=== PATIENT | male | born 1985 | race Caucasian/White ===

== ENCOUNTER 2017-05-23 15:56 | Inpatient (IN) | payer OTHER ==
[2017-05-23] MEDS ORDERED: SODIUM CHLORIDE 0.9% 1,000 ML IV STA (17:31)
--- NOTE | 2017-05-23 17:37 | ED ---
Nausea/Vomiting/Diarrhea HPI - General Chief complaint: Nausea/Vomiting/Diarrhea Stated complaint: dark urine/vomiting Time Seen by Provider: 05/23/17 17:26 Source: patient Mode of arrival: ambulatory Limitations: no limitations - History of Present Illness Initial comments: 32-year-old male patient presents to emergency department today for evaluation of upper abdominal pain, nausea, diarrhea, and vomiting for the last 4 days. Patient states also that for the last 4 days he has been feeling generally unwell and fatigued. Patient states he was having a few loose stools per day, he states last night he had multiple episodes. Patient states that the symptoms come and go. Patient denies any fever, chills, back pain, headache, dizziness, weakness, chest pain, or shortness of breath. He denies any hematuria, dysuria, urinary urgency, or urinary frequency. He denies any dark, bloody, or black stools. Patient does admit to IV drug use, states drug of choice is heroin. Patient has been taking methadone for 4 years as well. Patient was admitted to [facility] facility yesterday. States his symptoms have somewhat improved since being there since they have been giving him Zofran. - Related Data Home Medications Medication Instructions Recorded Confirmed Acetaminophen Tab [Tylenol Tab] 650 mg PO Q4H PRN 05/23/17 05/23/17 Calcium 1000mg Magnesium 500mg 1 tab PO TID PRN 05/23/17 05/23/17 Chlorpheniramine Maleate 4 mg PO Q4H PRN 05/23/17 05/23/17 [Chlor-Trimeton] Ibuprofen [Motrin] 600 mg PO Q6HR PRN 05/23/17 05/23/17 LORazepam [Ativan] 1 - 2 mg PO DIRECTED 05/23/17 05/23/17 Multivitamins, Thera [Multivitamin 1 tab PO DAILY 05/23/17 05/23/17 (formulary)] Ondansetron HCl [Zofran] 8 mg PO Q6H PRN 05/23/17 05/23/17 Ondansetron [Zofran] 4 mg IM Q6H PRN 05/23/17 05/23/17 Thiamine [Vitamin B-1] 100 mg PO DAILY 05/23/17 05/23/17 busPIRone HCl [Buspar] 10 mg PO TID PRN 05/23/17 05/23/17 cloNIDine HCL [Catapres] 0.1 mg PO Q4H PRN 05/23/17 05/23/17 traZODone HCL 50 - 150 mg PO HS 05/23/17 05/23/17 Allergies Allergy/AdvReac Type Severity Reaction Status Date / Time No Known Allergies Allergy Verified 05/23/17 18:24 Review of Systems ROS Statement: Those systems with pertinent positive or pertinent negative responses have been documented in the HPI. ROS Other: All systems not noted in ROS Statement are negative. Past Medical History Past Medical History: No Reported History Additional Past Medical History / Comment(s): back pain, iv drug user History of Any Multi-Drug Resistant Organisms: None Reported Past Surgical History: No Surgical Hx Reported Past Psychological History: No Psychological Hx Reported Smoking Status: Current every day smoker Past Alcohol Use History: None Reported Past Drug Use History: IV Drug Use General Exam Limitations: no limitations General appearance: alert, in no apparent distress Head exam: Present: atraumatic, normocephalic, normal inspection Eye exam: Present: normal appearance, PERRL, EOMI, scleral icterus. Absent: conjunctival injection, periorbital swelling ENT exam: Present: normal exam, mucous membranes moist, other (Foreign body noted to left ear canal, patient states this is a plunger off of a syringe.) Neck exam: Present: normal inspection. Absent: tenderness, meningismus, lymphadenopathy Respiratory exam: Present: normal lung sounds bilaterally. Absent: respiratory distress, wheezes, rales, rhonchi, stridor Cardiovascular Exam: Present: regular rate, normal rhythm, normal heart sounds. Absent: systolic murmur, diastolic murmur, rubs, gallop, clicks GI/Abdominal exam: Present: soft, tenderness (Midepigastric tenderness), normal bowel sounds. Absent: distended, guarding, rebound, rigid Back exam: Present: normal inspection Course Vital Signs 05/23/17 05/23/17 05/23/17 16:17 19:03 20:59 Temperature 97.6 F 98.5 F 98.3 F Pulse Rate 66 63 59 L Respiratory 16 20 20 Rate Blood Pressure 104/68 104/59 111/71 O2 Sat by Pulse 95 100 96 Oximetry Medical Decision Making - Medical Decision Making 32-year-old male patient presented with a 4 day history of upper abdominal pain , nausea, and vomiting. Patient has known history of IV drug abuse as well as hepatitis C. Patient physical exam did reveal scleral icterus and upper abdominal tenderness. Lab work was reviewed and did show an elevated AST, AST, and total bilirubin. Ultrasound of the abdomen was performed and did show some gallbladder wall thickening but no focal liver abnormalities. Did discuss case with Dr. Park who spoke to Dr. Monroe with surgery who states that an urgent surgical evaluation is unnecessary at this time. Discussed case with to Mykel Delgado [facility] who agrees to admit patient for further evaluation. Also spoke to Dr. Renae who wanted to add an acetaminophen level as well as an acute hepatitis profile. - Lab Data Result diagrams: 05/23/17 17:55 05/23/17 17:55 Lab Results 05/23/17 05/23/17 05/23/17 Range/Units 17:55 17:55 17:55 WBC 5.4 (3.8-10.6) k/uL RBC 5.21 (4.30-5.90) m/uL Hgb 15.7 (13.0-17.5) gm/dL Hct 45.1 (39.0-53.0) % MCV 86.5 (80.0-100.0) fL MCH 30.0 (25.0-35.0) pg MCHC 34.7 (31.0-37.0) g/dL RDW 13.8 (11.5-15.5) % Plt Count 139 L (150-450) k/uL Neutrophils % (Manual) 33.0 % Band Neutrophils % 3.0 % Lymphocytes % (Manual) 56.0 % Monocytes % (Manual) 7.0 % Eosinophils % (Manual) 1.0 % Neutrophils # (Manual) 1.9 (1.3-7.7) k/uL Lymphocytes # (Manual) 3.0 (1.0-4.8) k/uL Monocytes # (Manual) 0.4 (0-1.0) k/uL Eosinophils # (Manual) 0.1 (0-0.7) k/uL Nucleated RBCs 0 (0-0) /100 WBC Manual Slide Review Performed RBC Morphology Normal PT 13.9 H (9.0-12.0) sec INR 1.4 H (<1.2) APTT 29.6 (22.0-30.0) sec Sodium 138 (137-145) mmol/L Potassium 4.0 (3.5-5.1) mmol/L Chloride 102 (98-107) mmol/L Carbon Dioxide 29 (22-30) mmol/L Anion Gap 7 mmol/L BUN 11 (9-20) mg/dL Creatinine 0.78 (0.66-1.25) mg/dL Est GFR (MDRD) Af Amer >60 (>60 ml/min/1.73 sqM) Est GFR (MDRD) Non-Af >60 (>60 ml/min/1.73 sqM) Glucose 105 H (74-99) mg/dL Calcium 8.6 (8.4-10.2) mg/dL Total Bilirubin 6.0 H (0.2-1.3) mg/dL Conjugated Bilirubin 3.2 H (0.0-0.3) mg/dL Unconjugated Bilirubin 0.8 (0.0-1.1) mg/dL Delta Bilirubin 2.0 H (0.0-0.2) mg/dL AST 3637 H (17-59) U/L ALT 4275 H (21-72) U/L Alkaline Phosphatase 176 H (38-126) U/L Total Protein 7.2 (6.3-8.2) g/dL Albumin 3.4 L (3.5-5.0) g/dL Amylase 40 (30-110) U/L Lipase 46 (23-300) U/L Urine Color Urine Appearance (Clear) Urine pH (5.0-8.0) Ur Specific [place] (1.001-1.035) Urine Protein (Negative) Urine Glucose (UA) (Negative) Urine Ketones (Negative) Urine Blood (Negative) Urine Nitrite (Negative) Urine Bilirubin (Negative) Urine Urobilinogen (<2.0) mg/dL Ur Leukocyte Esterase (Negative) Urine WBC (0-5) /hpf Urine Mucus (None) /hpf 05/23/17 Range/Units 18:31 WBC (3.8-10.6) k/uL RBC (4.30-5.90) m/uL Hgb (13.0-17.5) gm/dL Hct (39.0-53.0) % MCV (80.0-100.0) fL MCH (25.0-35.0) pg MCHC (31.0-37.0) g/dL RDW (11.5-15.5) % Plt Count (150-450) k/uL Neutrophils % (Manual) % Band Neutrophils % % Lymphocytes % (Manual) % Monocytes % (Manual) % Eosinophils % (Manual) % Neutrophils # (Manual) (1.3-7.7) k/uL Lymphocytes # (Manual) (1.0-4.8) k/uL Monocytes # (Manual) (0-1.0) k/uL Eosinophils # (Manual) (0-0.7) k/uL Nucleated RBCs (0-0) /100 WBC Manual Slide Review RBC Morphology PT (9.0-12.0) sec INR (<1.2) APTT (22.0-30.0) sec Sodium (137-145) mmol/L Potassium (3.5-5.1) mmol/L Chloride (98-107) mmol/L Carbon Dioxide (22-30) mmol/L Anion Gap mmol/L BUN (9-20) mg/dL Creatinine (0.66-1.25) mg/dL Est GFR (MDRD) Af Amer (>60 ml/min/1.73 sqM) Est GFR (MDRD) Non-Af (>60 ml/min/1.73 sqM) Glucose (74-99) mg/dL Calcium (8.4-10.2) mg/dL Total Bilirubin (0.2-1.3) mg/dL Conjugated Bilirubin (0.0-0.3) mg/dL Unconjugated Bilirubin (0.0-1.1) mg/dL Delta Bilirubin (0.0-0.2) mg/dL AST (17-59) U/L ALT (21-72) U/L Alkaline Phosphatase (38-126) U/L Total Protein (6.3-8.2) g/dL Albumin (3.5-5.0) g/dL Amylase (30-110) U/L Lipase (23-300) U/L Urine Color Dark Brown Urine Appearance Clear (Clear) Urine pH 6.0 (5.0-8.0) Ur Specific [place] 1.021 (1.001-1.035) Urine Protein 1+ H (Negative) Urine Glucose (UA) Negative (Negative) Urine Ketones Negative (Negative) Urine Blood Negative (Negative) Urine Nitrite Negative (Negative) Urine Bilirubin 3+ H (Negative) Urine Urobilinogen 4.0 (<2.0) mg/dL Ur Leukocyte Esterase Negative (Negative) Urine WBC 3 (0-5) /hpf Urine Mucus Rare H (None) /hpf - Radiology Data Radiology results: report reviewed, image reviewed Two-view x-ray of the abdomen reveals normal bowel gas pattern. No sign of intestinal obstruction or pneumoperitoneum. Fecal pattern is normal. There are no pathologic calcifications. Lung bases are clear. Impression by Dr. Barboza reveals nonacute abdomen. Disposition Clinical Impression: Acute hepatic failure, Nausea & vomiting Disposition: ADMITTED IP TO THIS [facility] Condition: Fair Referrals: None,Stated [Primary Care Provider] - 1-2 days Decision to Admit Reason: Admit from EC Decision Date: 05/23/17 Decision Time: 20:43
--- NOTE | 2017-05-23 18:15 | XR ---
EXAMINATION TYPE: XR KUB DATE OF EXAM: 05/23/2017 COMPARISON: NONE HISTORY: Nausea and vomiting TECHNIQUE: 2 views FINDINGS: Bowel gas pattern is normal. There is no sign of intestinal obstruction or pneumoperitoneum . Fecal pattern is normal. There are no pathologic calcifications. Lung bases are clear. IMPRESSION: Nonacute abdomen.
[2017-05-23 18:19] LABS: Alkaline Phosphatase 176 U/L (38-126); Amylase 40 U/L (30-110); Anion Gap 7 mmol/L; Blood Urea Nitrogen 11 mg/dL (9-20); Calcium 8.6 mg/dL (8.4-10.2); Carbon Dioxide 29 mmol/L (22-30); Chloride 102 mmol/L (98-107); Glucose 105 mg/dL (74-99); Non-African American GFR(MDRD) >60 (>60 ml/min/1.73 sqM); Sodium 138 mmol/L (137-145); Total Protein 7.2 g/dL (6.3-8.2)
[2017-05-23 18:28] LABS: Aty Lym Flag Moderate; CH 29.2; CHCM 33.9; HCT 45.1 % (39.0-53.0); HDW 2.81; HGB 15.7 gm/dL (13.0-17.5); MCHC 34.7 g/dL (31.0-37.0); MCV 86.5 fL (80.0-100.0); Mean Platelet Volume 8.5; RBC 5.21 m/uL (4.30-5.90); RDW 13.8 % (11.5-15.5); WBC 5.4 k/uL (3.8-10.6); WBC (Perox) 5.31
[2017-05-23 18:52] LABS: Appearance,Urine Clear (Clear); Bilirubin,Urine 3+ (Negative); Glucose,Urine (UA) Negative (Negative); Ketones,Urine Negative (Negative); Leukocyte Esterase,Urine Negative (Negative); Mucus,Urine Rare /hpf; Nitrite,Urine Negative (Negative); Particle Count 4784; Protein,Urine 1+ (Negative); Specific Gravity,Urine 1.021 (1.001-1.035); UA Billing (MACRO vs. MICRO) MICRO; WBC,Urine 3 /hpf (0-5)
[2017-05-23 18:58] LABS: ALT 4275 U/L (21-72); AST 3637 U/L (17-59)
[2017-05-23 19:05] LABS: Add Differential Manual Differential
[2017-05-23 19:08] LABS: Manual Review Performed; Nucleated Red Blood Cells 0 /100 WBC (0-0); RBC Morphology Normal; Total Cells Counted 100
[2017-05-23] MEDS ORDERED: IBUPROFEN 600 MG TAB PO STA (19:21)
[2017-05-23 19:32] LABS: INR 1.4 (<1.2); Partial Thromboplastin Time 29.6 sec (22.0-30.0); Prothrombin Time 13.9 sec (9.0-12.0)
--- NOTE | 2017-05-23 19:59 | US ---
EXAMINATION TYPE: US abdomen limited DATE OF EXAM: 05/23/2017 COMPARISON: NONE CLINICAL HISTORY: Pain. Pt states nausea and dark urine, abnormal LFT's EXAM MEASUREMENTS: Liver Length: 18.7 cm Gallbladder Wall: 0.8 cm CBD: 0.4 cm Right Kidney: 11.3 x 4.3 x 5.0 cm Pancreas: Mostly obscured by bowel gas/ Possible lymph node visible anterior to panc Liver: Enlarged Gallbladder: Lumen clear/ Grossly thickened wall with pericholecystic fluid Evidence for sonographic Jordan's sign: No CBD: wnl Right Kidney: wnl, lower pole gassed out IMPRESSION: Gallbladder wall is somewhat thickened suspicious for cholecystitis. No dilated ducts. No focal liver defect.
[2017-05-23] MEDS: SODIUM CHLORIDE 0.9% 1,000 ML IV SCH (20:06)
[2017-05-23] MEDS ORDERED: NALOXONE 0.4 MG/ML 1 ML VIAL IV PRN (20:30)
[2017-05-23] MEDS ORDERED: cloNIDine HCL 0.1 MG TAB PO PRN (20:34)
[2017-05-23] MEDS ORDERED: busPIRone HCl 10 MG TAB PO PRN (20:34)
[2017-05-23 21:34] LABS: Acetaminophen <10.0 ug/mL
[2017-05-23 22:06] LABS: Hepatitis B Surface Ag Index 0.09
[2017-05-23 22:12] LABS: Hepatitis B Core IgM Index 0.07
[2017-05-23 22:24] LABS: Hepatitis C Virus IgG Ab Reactive (Negative)
[2017-05-23 23:57] VITALS: BMI 22.2
[2017-05-24] MEDS: traZODone HCL 50 MG TAB PO SCH ×2 (00:34→20:44)
[2017-05-24 07:07] LABS: Aty Lym Flag Moderate; CH 29.4; CHCM 33.1; HCT 46.3 % (39.0-53.0); HGB 15.1 gm/dL (13.0-17.5); MCH 29.1 pg (25.0-35.0); MCHC 32.6 g/dL (31.0-37.0); MCV 89.3 fL (80.0-100.0); Mean Platelet Volume 8.1; RBC 5.18 m/uL (4.30-5.90); RDW 14.1 % (11.5-15.5); WBC 4.8 k/uL (3.8-10.6); WBC (Perox) 4.75
[2017-05-24 07:24] LABS: Alkaline Phosphatase 167 U/L (38-126); Anion Gap 6 mmol/L; Blood Urea Nitrogen 6 mg/dL (9-20); Calcium 8.1 mg/dL (8.4-10.2); Carbon Dioxide 26 mmol/L (22-30); Chloride 110 mmol/L (98-107); Glucose 83 mg/dL (74-99); Non-African American GFR(MDRD) >60 (>60 ml/min/1.73 sqM); Potassium 3.9 mmol/L (3.5-5.1); Sodium 142 mmol/L (137-145); Total Protein 6.3 g/dL (6.3-8.2)
[2017-05-24] MEDS: ONDANSETRON 4 MG/2 ML VIAL IVP PRN ×2 (07:29→20:44)
[2017-05-24 08:25] LABS: ALT 3570 U/L (21-72); AST 2460 U/L (17-59)
[2017-05-24 08:35] LABS: Add Differential Manual Differential
[2017-05-24 08:39] LABS: INR 1.4 (<1.2)
[2017-05-24 08:40] LABS: Manual Review Performed; Nucleated Red Blood Cells 0 /100 WBC (0-0); Total Cells Counted 100
[2017-05-24] MEDS: METHADONE 10 MG TAB PO SCH (08:44)
--- NOTE | 2017-05-24 15:15 | CONS ---
DATE OF SERVICE: 05/24/2017 REQUESTING PHYSICIAN: Dr. Camara. REASON FOR CONSULTATION: Acute hepatitis. HISTORY OF PRESENT ILLNESS: The patient is a 32-year-old white male who came into the emergency room from [facility] where he was there for the last two or three days duration. He has a history of active intravenous drug use until four days ago. He started having some abdominal discomfort with nausea, not feeling well, some emesis and diarrhea for the last four days duration and came into the emergency room and subsequently was noted to have acute elevation of serum transaminases consistent with acute hepatitis. The patient has been using intravenous drugs on and off for the last five years and the last one was about four years ago. He is presently on a methadone program on an outpatient basis. He was diagnosed with chronic hepatitis infection about two years ago. Was not treated because of his ongoing intravenous drug use. He started noticing his urine somewhat dark in the color for the last five days and then vague abdominal discomfort with nausea, vomiting and diarrhea. He is feeling much better this morning. He reports no fever, chills or night sweats. He reports having hepatitis A and B vaccination in the past. PAST MEDICAL HISTORY: Significant for active intravenous drug use, chronic hepatitis C infection. MEDICATIONS AT HOME: Zofran, multivitamin, BuSpar, Catapres, vitamin D1, Trazodone, Tylenol p.r.n., calcium, Motrin, Ativan. ALLERGIES: None. PAST SURGICAL HISTORY: None. SOCIAL HISTORY: Active intravenous drug use. No alcohol use. FAMILY HISTORY: Unremarkable. REVIEW OF SYSTEMS: CARDIOPULMONARY: No chest pain or shortness of breath. GENITOURINARY: No dysuria or hematuria. MUSCULOSKELETAL: Unremarkable. SKIN: Unremarkable. ENDOCRINE: Unremarkable. PSYCHIATRIC; Unremarkable. NEUROLOGIC: Unremarkable. ENT: Vision unremarkable. CONSTITUTION: No recent weight loss. No night sweats. PHYSICAL EXAMINATION: He appears comfortable, no apparent distress. Vital signs are stable. Blood pressure is 113/66, pulse rate 58, temperature 97.9. HEENT: Unremarkable. Pupils are equal. Conjunctivae pink. Sclerae anicteric. Oral cavity, no lesions. NECK: No JVD or lymph node enlargement. CHEST: Clear to auscultation. HEART: Regular rate and rhythm. ABDOMEN: Soft. Liver was palpable 4 cm below the right costal margin, slightly tender to palpation. No splenomegaly. EXTREMITIES: No pedal edema. SKIN: No rashes. NEURO: Alert and oriented x3. No focal deficits. LABS DURING ADMISSION TO THE HOSPITAL: WBC 5.4, hemoglobin 15.7, platelets 139. INR 1.4, today INR is 1.4. AST was 3637, today it is 2460 ALT was 4275, today it is 3570. T-bili is 6. Amylase and lipase are normal. Hepatitis serology showed hepatitis A IgM antibody positive, hepatitis B surface antigen negative, hepatitis. B core IgM antibody negative and hepatitis C antibody is reactive. IMPRESSION: This is a patient who is an active intravenous drug user, presented to the hospital with abdominal discomfort, nausea, vomiting, abdominal pain and yellowish discoloration of ( ) for the last few days duration. Labs show elevated serum transaminases in the range of 4000 consistent with acute hepatitis. Hepatitis serologies showed hepatitis A IgM antibody to be positive consistent with acute hepatitis A infection. The patient does have chronic hepatitis C infection diagnosed two years ago, now with superimposed acute hepatitis A infection. His serum transaminases have improved from yesterday. He did have ultrasound done of the abdomen that was normal other than some thickened gallbladder wall. RECOMMENDATIONS: 1. Start him on a regular diet. 2. Repeat serum transaminases in the morning. 3. If they continue to improve he can be discharged home in the next 1 or 2 days with close outpatient follow up. 4. In regards to chronic hepatitis C infection, I suggested that he follow up in the office as an outpatient basis and once acute hepatitis A infection is resolved, will do further investigations for hepatitis C infection and see if he is a candidate for antiviral therapy on an outpatient basis. The plan was discussed with him, he is agreeable to it. Thank you for this consultation. JAZZY
--- NOTE | 2017-05-24 15:58 | P.HPIM ---
History of Present Illness Patient is a 32-year-old gentleman came in from [address] because of upper abdominal pain nausea diarrhea and vomiting last going on for 4 days nausea diarrhea improved at this point of time abdominal pain improved as well. And patient is found to have highly elevated liver enzymes with AST and ALP bit between 3000 and 4000 and highly elevated alkaline phosphatase. Patient is found to have positive hepatitis a IgM antibody consistent with acute hepatitis A. Patient does have hepatitis C as well from his IV drug use for which patient is on drug rehabitation program. Patient denied any fever, chills, dysuria. Gastroneurology was consulted patient denied any hematemesis hematochezia or dark stools. Patient liver enzymes need to be monitored the chance of fulminant hepatitis is extremely rare with hepatitis A Ashlee although patient does have acute hepatitis A causing these symptoms of nausea vomiting diarrhea and generalized malaise. Liver enzymes need to be monitored later today along with INR which is minimally elevated to 1.4 because of headache acute hepatitis. Patient may have a competent of chronic hepatitis from hepatitis C. Review of Systems REVIEW OF SYSTEMS: CONSTITUTIONAL: No fever, no malaise, no fatigue. HEENT: No recent visual problems or hearing problems. Denied any sore throat. CARDIOVASCULAR: No chest pain, orthopnea, PND, no palpitations, no syncope. PULMONARY: No shortness of breath, no cough, no hemoptysis. GASTROINTESTINAL: As mentioned in HPI NEUROLOGICAL: No headaches, no weakness, no numbness. HEMATOLOGICAL: Denies any bleeding or petechiae. GENITOURINARY: Denies any burning micturition, frequency, or urgency. MUSCULOSKELETAL/RHEUMATOLOGICAL: Denies any joint pain, swelling, or any muscle pain. ENDOCRINE: Denies any polyuria or polydipsia. The rest of the 14-point review of systems is negative. Past Medical History Past Medical History: No Reported History Additional Past Medical History / Comment(s): back pain, iv drug user (cocaine, heroin) on methadone now and at [address] History of Any Multi-Drug Resistant Organisms: None Reported Past Surgical History: No Surgical Hx Reported Past Anesthesia/Blood Transfusion Reactions: No Reported Reaction Past Psychological History: No Psychological Hx Reported Smoking Status: Current every day smoker Past Alcohol Use History: None Reported Past Drug Use History: Cocaine, Heroin, IV Drug Use - Past Family History Mother Family Medical History: No Reported History Medications and Allergies Home Medications Medication Instructions Recorded Confirmed Type Acetaminophen Tab [Tylenol Tab] 650 mg PO Q4H PRN 05/23/17 05/23/17 History Calcium 1000mg Magnesium 500mg 1 tab PO TID PRN 05/23/17 05/23/17 History Chlorpheniramine Maleate 4 mg PO Q4H PRN 05/23/17 05/23/17 History [Chlor-Trimeton] Ibuprofen [Motrin] 600 mg PO Q6HR PRN 05/23/17 05/23/17 History LORazepam [Ativan] 1 - 2 mg PO DIRECTED 05/23/17 05/23/17 History Multivitamins, Thera [Multivitamin 1 tab PO DAILY 05/23/17 05/23/17 History (formulary)] Ondansetron HCl [Zofran] 8 mg PO Q6H PRN 05/23/17 05/23/17 History Ondansetron [Zofran] 4 mg IM Q6H PRN 05/23/17 05/23/17 History Thiamine [Vitamin B-1] 100 mg PO DAILY 05/23/17 05/23/17 History busPIRone HCl [Buspar] 10 mg PO TID PRN 05/23/17 05/23/17 History cloNIDine HCL [Catapres] 0.1 mg PO Q4H PRN 05/23/17 05/23/17 History traZODone HCL 50 - 150 mg PO HS 05/23/17 05/23/17 History Allergies Allergy/AdvReac Type Severity Reaction Status Date / Time No Known Allergies Allergy Verified 05/23/17 18:24 Physical Exam Vitals: Vital Signs Temp Pulse Pulse Resp BP BP Pulse Ox 05/24/17 07:00 97.8 F 53 L 16 110/67 94 L 05/23/17 22:05 97.9 F 58 L 16 113/66 96 05/23/17 20:59 98.3 F 59 L 20 111/71 96 05/23/17 19:03 98.5 F 63 20 104/59 100 05/23/17 16:17 97.6 F 66 16 104/68 95 Intake and Output 05/24/17 05/24/17 05/24/17 06:59 14:59 22:59 Intake Total 800 Balance 800 Intake: IV 800 Sodium Chloride 0.9% 1, 800 000 ml @ 100 mls/hr IV . Q10H [facility] Rx#:[id number] Other: # Voids 1 PHYSICAL EXAMINATION: GENERAL: The patient is alert and oriented x3, not in any acute distress. Well developed, well nourished. HEENT: Pupils are round and equally reacting to light. EOMI. patient does have scleral icterus. No conjunctival pallor. Normocephalic, atraumatic. No pharyngeal erythema. No thyromegaly. CARDIOVASCULAR: S1 and S2 present. No murmurs, rubs, or gallops. PULMONARY: Chest is clear to auscultation, no wheezing or crackles. ABDOMEN: Soft, nontender, nondistended, normoactive bowel sounds. No palpable organomegaly. MUSCULOSKELETAL: No joint swelling or deformity. EXTREMITIES: No cyanosis, clubbing, or pedal edema. NEUROLOGICAL: Gross neurological examination did not reveal any focal deficits. SKIN: No rashes. Results CBC & Chem 7: 05/24/17 06:47 05/24/17 06:47 Labs: Abnormal Lab Results - Last 24 Hours (Table) 05/23/17 05/23/17 05/23/17 Range/Units 17:55 17:55 17:55 Plt Count 139 L (150-450) k/uL PT 13.9 H (9.0-12.0) sec INR 1.4 H (<1.2) Chloride (98-107) mmol/L BUN (9-20) mg/dL Glucose 105 H (74-99) mg/dL Calcium (8.4-10.2) mg/dL Total Bilirubin 6.0 H (0.2-1.3) mg/dL Conjugated Bilirubin 3.2 H (0.0-0.3) mg/dL Delta Bilirubin 2.0 H (0.0-0.2) mg/dL AST 3637 H (17-59) U/L ALT 4275 H (21-72) U/L Alkaline Phosphatase 176 H (38-126) U/L Albumin 3.4 L (3.5-5.0) g/dL Urine Protein (Negative) Urine Bilirubin (Negative) Urine Mucus (None) /hpf 05/23/17 05/24/17 05/24/17 Range/Units 18:31 06:47 06:47 Plt Count 117 L (150-450) k/uL PT (9.0-12.0) sec INR (<1.2) Chloride 110 H (98-107) mmol/L BUN 6 L (9-20) mg/dL Glucose (74-99) mg/dL Calcium 8.1 L (8.4-10.2) mg/dL Total Bilirubin 6.0 H (0.2-1.3) mg/dL Conjugated Bilirubin (0.0-0.3) mg/dL Delta Bilirubin (0.0-0.2) mg/dL AST 2460 H (17-59) U/L ALT 3570 H (21-72) U/L Alkaline Phosphatase 167 H (38-126) U/L Albumin 2.8 L (3.5-5.0) g/dL Urine Protein 1+ H (Negative) Urine Bilirubin 3+ H (Negative) Urine Mucus Rare H (None) /hpf 05/24/17 Range/Units 08:19 Plt Count (150-450) k/uL PT 14.0 H (9.0-12.0) sec INR 1.4 H (<1.2) Chloride (98-107) mmol/L BUN (9-20) mg/dL Glucose (74-99) mg/dL Calcium (8.4-10.2) mg/dL Total Bilirubin (0.2-1.3) mg/dL Conjugated Bilirubin (0.0-0.3) mg/dL Delta Bilirubin (0.0-0.2) mg/dL AST (17-59) U/L ALT (21-72) U/L Alkaline Phosphatase (38-126) U/L Albumin (3.5-5.0) g/dL Urine Protein (Negative) Urine Bilirubin (Negative) Urine Mucus (None) /hpf Thrombosis Risk Factor Assmnt - Choose All That Apply Any of the Below Risk Factors Present?: No Other Risk Factors: No Thrombosis Risk Factor Assessment Level: Very Low Risk Assessment and Plan Plan: #1 nausea vomiting diarrhea: Secondary to acute hepatitis A symptoms are improving at this point of time continue with IV fluids and monitor him. Patient will be started on diet. #2 highly elevated liver enzymes: Secondary to acute hepatitis a along with a competent of chronic hepatitis from hepatitis C. We'll repeat liver enzymes along with INR today and tomorrow morning. #3 chronic hepatitis C: Patient related to follow gastric gastroneurology as an outpatient. #4 history of IV drug use in the past. #5 coagulopathy: Secondary to acute hepatitis. #7 jaundice: Secondary to acute hepatitis.
[2017-05-24] MEDS: SODIUM CHLORIDE 0.9% 1,000 ML IV SCH ×2 (16:45)
[2017-05-24 17:55] LABS: INR 1.4 (<1.2); Prothrombin Time 13.4 sec (9.0-12.0)
[2017-05-24 18:10] LABS: Alkaline Phosphatase 141 U/L (38-126); Anion Gap 7 mmol/L; Blood Urea Nitrogen 6 mg/dL (9-20); Calcium 8.1 mg/dL (8.4-10.2); Carbon Dioxide 26 mmol/L (22-30); Chloride 107 mmol/L (98-107); Glucose 90 mg/dL (74-99); Non-African American GFR(MDRD) >60 (>60 ml/min/1.73 sqM); Potassium 4.3 mmol/L (3.5-5.1); Sodium 140 mmol/L (137-145); Total Bilirubin 5.1 mg/dL (0.2-1.3)
[2017-05-24 18:40] LABS: ALT 2910 U/L (21-72); AST 1587 U/L (17-59)
[2017-05-25] MEDS: SODIUM CHLORIDE 0.9% 1,000 ML IV SCH ×3 (04:37→20:28)
[2017-05-25 07:56] LABS: Aty Lym Flag Slight; CH 29.8; HCT 46.3 % (39.0-53.0); HDW 2.82; HGB 14.7 gm/dL (13.0-17.5); MCH 28.7 pg (25.0-35.0); MCHC 31.7 g/dL (31.0-37.0); MCV 90.8 fL (80.0-100.0); Mean Platelet Volume 9.1; RDW 15.1 % (11.5-15.5); WBC 4.6 k/uL (3.8-10.6); WBC (Perox) 4.34
[2017-05-25 08:11] LABS: INR 1.2 (<1.2); Prothrombin Time 12.2 sec (9.0-12.0)
[2017-05-25] MEDS: ONDANSETRON 4 MG/2 ML VIAL IVP PRN ×3 (08:13→19:26)
[2017-05-25] MEDS: METHADONE 10 MG TAB PO SCH (08:13)
[2017-05-25 08:45] LABS: Add Differential Manual Differential
[2017-05-25 08:47] LABS: Alkaline Phosphatase 161 U/L (38-126); Anion Gap 5 mmol/L; Blood Urea Nitrogen 4 mg/dL (9-20); Calcium 8.2 mg/dL (8.4-10.2); Carbon Dioxide 26 mmol/L (22-30); Chloride 109 mmol/L (98-107); Glucose 87 mg/dL (74-99); Non-African American GFR(MDRD) >60 (>60 ml/min/1.73 sqM); Potassium 4.4 mmol/L (3.5-5.1); Sodium 140 mmol/L (137-145); Total Bilirubin 5.6 mg/dL (0.2-1.3); Total Protein 6.2 g/dL (6.3-8.2)
[2017-05-25 08:48] LABS: Manual Review Performed; Nucleated Red Blood Cells 0 /100 WBC (0-0); Total Cells Counted 100
[2017-05-25 08:57] LABS: AST 1105 U/L (17-59)
[2017-05-25 09:10] LABS: ALT 2433 U/L (21-72)
--- NOTE | 2017-05-25 12:08 | P.DS ---
Providers Date of admission: 05/23/17 20:42 Attending physician: Gregor Camara Consults: 05/23/17 20:30 Consult Physician Stat Consulting Provider: Mis Renae Consult Reason/Comments: Acute Hepatic Failure Do you want consulting provider notified?: Already Contacted Primary care physician: Stated None Hospital Course: Patient is a 32-year-old gentleman came in from [place] because of upper abdominal pain nausea diarrhea and vomiting last going on for 4 days nausea diarrhea improved at this point of time abdominal pain improved as well. And patient is found to have highly elevated liver enzymes with AST and ALP bit between 3000 and 4000 and highly elevated alkaline phosphatase. Patient is found to have positive hepatitis a IgM antibody consistent with acute hepatitis A. Patient does have hepatitis C as well from his IV drug use for which patient is on drug rehabitation program. Patient denied any fever, chills, dysuria. Gastroneurology was consulted patient denied any hematemesis hematochezia or dark stools. Patient liver enzymes need to be monitored the chance of fulminant hepatitis is extremely rare with hepatitis A although patient does have acute hepatitis A causing these symptoms of nausea vomiting diarrhea and generalized malaise. Liver enzymes need to be monitored later today along with INR which is minimally elevated to 1.4 because of headache acute hepatitis. Patient may have a competent of chronic hepatitis from hepatitis C. 05/25/2017 Patient is still complaining of some nausea, if patient is able to tolerate diet and if his nausea improves patient will be discharged today his liver enzymes did improve bilirubin remains the same which is expected to improve down the line. Patient will be discharged on Prilosec for possible gastritis and the Zofran on as-needed basis for nausea vomiting. Patient will follow with as an outpatient. GENERAL: The patient is alert and oriented x3, not in any acute distress. Well developed, well nourished. HEENT: Pupils are round and equally reacting to light. EOMI. patient does have scleral icterus. No conjunctival pallor. Normocephalic, atraumatic. No pharyngeal erythema. No thyromegaly. CARDIOVASCULAR: S1 and S2 present. No murmurs, rubs, or gallops. PULMONARY: Chest is clear to auscultation, no wheezing or crackles. ABDOMEN: Soft, nontender, nondistended, normoactive bowel sounds. No palpable organomegaly. MUSCULOSKELETAL: No joint swelling or deformity. EXTREMITIES: No cyanosis, clubbing, or pedal edema. NEUROLOGICAL: Gross neurological examination did not reveal any focal deficits. SKIN: No rashes. #1 nausea vomiting diarrhea: Secondary to acute hepatitis A improved symptoms and improved liver enzymes patient will be discharged if he is able to tolerate diet today. #2 highly elevated liver enzymes: Secondary to acute hepatitis a along with a competent of chronic hepatitis from hepatitis C. improved liver enzymes #3 chronic hepatitis C: Patient related to follow gastric gastro-enterology as an outpatient. #4 history of IV drug use in the past. #5 coagulopathy: Secondary to acute hepatitis. #6 possible gastritis: For which patient will be discharged on Prilosec #7 jaundice: Secondary to acute hepatitis. Patient Condition at Discharge: Fair Plan - Discharge Summary New Discharge Prescriptions: New Omeprazole [PriLOSEC] 40 mg PO AC-BRKFST #14 capsule. Ondansetron Odt [Zofran Odt] 4 mg PO Q6HR PRN #20 tab PRN Reason: Anxiety Discontinued Ibuprofen [Motrin] 600 mg PO Q6HR PRN PRN Reason: Pain cloNIDine HCL [Catapres] 0.1 mg PO Q4H PRN PRN Reason: Anxiety No Action traZODone HCL 50 - 150 mg PO HS Chlorpheniramine Maleate [Chlor-Trimeton] 4 mg PO Q4H PRN PRN Reason: withdrawl Acetaminophen Tab [Tylenol Tab] 650 mg PO Q4H PRN PRN Reason: Pain Ondansetron [Zofran] 4 mg IM Q6H PRN PRN Reason: Nausea Ondansetron HCl [Zofran] 8 mg PO Q6H PRN PRN Reason: Nausea Calcium 1000mg Magnesium 500mg 1 tab PO TID PRN PRN Reason: muscle cramps busPIRone HCl [Buspar] 10 mg PO TID PRN PRN Reason: Anxiety Thiamine [Vitamin B-1] 100 mg PO DAILY Multivitamins, Thera [Multivitamin (formulary)] 1 tab PO DAILY LORazepam [Ativan] 1 - 2 mg PO DIRECTED Discharge Medication List Acetaminophen Tab [Tylenol Tab] 650 mg PO Q4H PRN 05/23/17 [History] Calcium 1000mg Magnesium 500mg 1 tab PO TID PRN 05/23/17 [History] Chlorpheniramine Maleate [Chlor-Trimeton] 4 mg PO Q4H PRN 05/23/17 [History] LORazepam [Ativan] 1 - 2 mg PO DIRECTED 05/23/17 [History] Multivitamins, Thera [Multivitamin (formulary)] 1 tab PO DAILY 05/23/17 [History ] Ondansetron HCl [Zofran] 8 mg PO Q6H PRN 05/23/17 [History] Ondansetron [Zofran] 4 mg IM Q6H PRN 05/23/17 [History] Thiamine [Vitamin B-1] 100 mg PO DAILY 05/23/17 [History] busPIRone HCl [Buspar] 10 mg PO TID PRN 05/23/17 [History] traZODone HCL 50 - 150 mg PO HS 05/23/17 [History] Omeprazole [PriLOSEC] 40 mg PO MOISES #14 capsule. 05/25/17 [Rx] Ondansetron Odt [Zofran Odt] 4 mg PO Q6HR PRN #20 tab 05/25/17 [Rx] Follow up Appointment(s)/Referral(s): Mis Renae MD [STAFF PHYSICIAN] - 1 Week None,Stated [Primary Care Provider] - 1-2 days Discharge Disposition: HOME SELF-CARE
[2017-05-25] MEDS: MORPHINE SULFATE 4 MG/ML SYRINGE IVP PRN ×4 (15:00→23:25)
[2017-05-25] MEDS: METOCLOPRAMIDE 5 MG/ML 2 ML VIAL IVP PRN ×2 (16:51→23:25)
[2017-05-25] MEDS: traZODone HCL 50 MG TAB PO SCH (23:26)
[2017-05-26] MEDS: MORPHINE SULFATE 4 MG/ML SYRINGE IVP PRN ×2 (06:18→08:25)
[2017-05-26] MEDS: METOCLOPRAMIDE 5 MG/ML 2 ML VIAL IVP PRN (06:19)
--- NOTE | 2017-05-26 07:03 | PN ---
The patient is a 32 -year-old pleasant white male admitted to the hospital with acute hepatitis A infection. He presented with abdominal pain, nausea and vomiting, not feeling well, with yellowish discoloration of urine for the last four to five days duration. He was noted to have elevated serum transaminase in the 4000 range. No history of alcohol use. No history of Tylenol use recently. He is in [facility] undergoing rehab for IV heroin which the last use was five days ago. Subsequently workup did show positive Hepatitis A IgA antibody consistent with acute hepatitis A infection. He feels better. He still complains of abdominal pain with bowel movements. No nausea or vomiting. On physical examination, he appears appears comfortable, no apparent distress. Vital signs are stable. Blood pressure is 95/65. Pulse rate 56. Temperature 98. HEENT: Unremarkable. Conjunctivae pink. Sclerae anicteric. Oral cavity no lesions. Neck no JVD or lymph node enlargement. Chest is clear to auscultation. Heart is regular rate and rhythm. Abdomen is soft. Bowel sounds positive. No organomegaly. Extremities no pedal edema. Skin no rashes. Neurological: Alert and oriented times three. No focal deficits. Labs: From last night, AST 1587, ALT 2910. Labs from today: AST 1105, ALT is still pending. T-bili is down to 5.6. Alk phos is 161. IMPRESSION: 1. Acute hepatitis A infection. Labs from today show gradual improvement in serum transaminases and PT/INR also improved to 1.2. Overall the patient is recovering well from acute hepatitis A infection. 2. History of intravenous drug use and history of chronic hepatitis C infection, diagnosed two years ago. RECOMMENDATIONS: It was discussed with the patient that his serum transaminases are gradually improving and he can be transferred back to [facility] today. He can continue with a regular diet. He can follow-up in the office in a week on an outpatient basis. JAZZY
[2017-05-26] MEDS: METHADONE 10 MG TAB PO SCH (07:18)
[2017-05-26 07:51] VITALS: BP 107/62; PULSE 60; RESP 18; TEMP 97.8
[2017-05-26] MEDS: SODIUM CHLORIDE 0.9% 1,000 ML IV SCH (08:10)
[2017-05-26] MEDS: ONDANSETRON 4 MG/2 ML VIAL IVP PRN (09:44)
--- NOTE | 2017-05-26 10:48 | P.DS ---
Providers Date of admission: 05/23/17 20:42 Attending physician: Gregor Camara Consults: 05/23/17 20:30 Consult Physician Stat Consulting Provider: Mis Renae Consult Reason/Comments: Acute Hepatic Failure Do you want consulting provider notified?: Already Contacted Primary care physician: Stated None Hospital Course: Patient had nausea vomiting is here because of which he was not discharged. Patient had opiate withdrawal symptoms because he wanted his methadone patient' s symptoms improved improved with IV morphine and patient nausea vomiting up little resolved at this point of time and patient is able to take his methadone today. And patient will be discharged back to his [facility] today. For rest of the hospital course please refer to my dictation from yesterday. PHYSICAL EXAMINATION: GENERAL: The patient is alert and oriented x3, not in any acute distress. Well developed, well nourished. HEENT: Pupils are round and equally reacting to light. EOMI. No scleral icterus. No conjunctival pallor. Normocephalic, atraumatic. No pharyngeal erythema. No thyromegaly. CARDIOVASCULAR: S1 and S2 present. No murmurs, rubs, or gallops. PULMONARY: Chest is clear to auscultation, no wheezing or crackles. ABDOMEN: Soft, nontender, nondistended, normoactive bowel sounds. No palpable organomegaly. MUSCULOSKELETAL: No joint swelling or deformity. EXTREMITIES: No cyanosis, clubbing, or pedal edema. NEUROLOGICAL: Gross neurological examination did not reveal any focal deficits. SKIN: No rashes. Patient Condition at Discharge: Fair Plan - Discharge Summary New Discharge Prescriptions: New Omeprazole [PriLOSEC] [address] [facility] [facility]. Ondansetron Odt [Zofran Odt] 4 mg PO Q6HR PRN #20 tab PRN Reason: Anxiety Discontinued Ibuprofen [Motrin] 600 mg PO Q6HR PRN PRN Reason: Pain cloNIDine HCL [Catapres] 0.1 mg PO Q4H PRN PRN Reason: Anxiety No Action traZODone HCL 50 - 150 mg PO HS Chlorpheniramine Maleate [Chlor-Trimeton] 4 mg PO Q4H PRN PRN Reason: withdrawl Acetaminophen Tab [Tylenol Tab] 650 mg PO Q4H PRN PRN Reason: Pain Ondansetron [Zofran] 4 mg IM Q6H PRN PRN Reason: Nausea Ondansetron HCl [Zofran] 8 mg PO Q6H PRN PRN Reason: Nausea Calcium 1000mg Magnesium 500mg 1 tab PO TID PRN PRN Reason: muscle cramps busPIRone HCl [Buspar] 10 mg PO TID PRN PRN Reason: Anxiety Thiamine [Vitamin B-1] 100 mg PO DAILY Multivitamins, Thera [Multivitamin (formulary)] 1 tab PO DAILY LORazepam [Ativan] 1 - 2 mg PO DIRECTED Discharge Medication List Acetaminophen Tab [Tylenol Tab] 650 mg PO Q4H PRN 05/23/17 [History] Calcium 1000mg Magnesium 500mg 1 tab PO TID PRN 05/23/17 [History] Chlorpheniramine Maleate [Chlor-Trimeton] 4 mg PO Q4H PRN 05/23/17 [History] LORazepam [Ativan] 1 - 2 mg PO DIRECTED 05/23/17 [History] Multivitamins, Thera [Multivitamin (formulary)] 1 tab PO DAILY 05/23/17 [History ] Ondansetron HCl [Zofran] 8 mg PO Q6H PRN 05/23/17 [History] Ondansetron [Zofran] 4 mg IM Q6H PRN 05/23/17 [History] Thiamine [Vitamin B-1] 100 mg PO DAILY 05/23/17 [History] busPIRone HCl [Buspar] 10 mg PO TID PRN 05/23/17 [History] traZODone HCL 50 - 150 mg PO HS 05/23/17 [History] Omeprazole [PriLOSEC] 40 mg PO AC-BRKFST #14 capsule. 05/25/17 [Rx] Ondansetron Odt [Zofran Odt] 4 mg PO Q6HR PRN #20 tab 05/25/17 [Rx] Follow up Appointment(s)/Referral(s): Mis Renae MD [STAFF PHYSICIAN] - 06/18/17 3:00 pm (Please call office with insurance information before sttenting this appointment to make sure they take your insurance.) None,Stated [Primary Care Provider] - 1-2 days Patient Instructions/Handouts: Acute Nausea and Vomiting (GEN) Discharge Disposition: HOME SELF-CARE
== END 2017-05-26 11:17 | disposition home or self-care (01) | DRG 442 ==
LOC: EC 15:56 → 5MS5E 20:42
PROVIDERS: ADMIT Hospitalist; ATTEND Hospitalist
PROC: HZ2ZZZZ Detoxification Services for Substance Abuse Treatment (ICD-10-PCS; principal; 2017-05-23)
DX: B15.9 Hepatitis A without hepatic coma (principal); F11.23 Opioid dependence with withdrawal; D68.4 Acquired coagulation factor deficiency; R17 Unspecified jaundice; F17.200 Nicotine dependence, unspecified, uncomplicated; M54.9 Dorsalgia, unspecified; R51 Headache; R53.83 Other fatigue; B18.2 Chronic viral hepatitis C; K29.70 Gastritis, unspecified, without bleeding; R93.3 Abnormal findings on diagnostic imaging of other parts of digestive tract; R74.8 Abnormal levels of other serum enzymes; F19.10 Other psychoactive substance abuse, uncomplicated; Z79.1 Long term (current) use of non-steroidal anti-inflammatories (NSAID); Z79.899 Other long term (current) drug therapy
CPT/HCPCS: 36415; 74000; 76705; 80053; 80074; 81001; 82150; 82248; 83520; 83690; 85025; 85610; 85730; 96360; 96361; 99285

== ENCOUNTER 2020-03-19 11:01 | Emergency (ER) | payer OTHER ==
[2020-03-19 11:05] VITALS: RESP 18; TEMP 98
[2020-03-19] MEDS ORDERED: SODIUM CHLORIDE 0.9% 1,000 ML IV STA (11:34)
[2020-03-19] MEDS ORDERED: PANTOPRAZOLE 40 MG/10 ML VIAL IVP STA (11:34)
[2020-03-19] MEDS ORDERED: LIDOCAINE 1%-EPI 1:100,000 20 ML VIAL SQ STA (11:35)
[2020-03-19] MEDS ORDERED: AMOXIC-POT CLAV 875-125MG 1 EACH TAB PO STA (11:47)
--- NOTE | 2020-03-19 11:53 | ED ---
General Adult HPI - General Chief complaint: Chest Pain Stated complaint: Dental Pain Time Seen by Provider: 03/19/20 11:06 Source: patient Mode of arrival: ambulatory Limitations: no limitations - History of Present Illness Initial comments: Patient is a 35-year-old male presenting to the emergency department multiple chief complaints. Patient reports about one month ago he developed nausea with multiple episodes of vomiting for 5 days. States that he has developed on and off vomiting episodes with no abdominal pain or diarrhea. No night sweats. She'll. States he does smoke marijuana but the nausea vomiting episodes are not related to that. Patient also reports a possible abscess on his back that was present there about 2 weeks ago. Patient also reports dental pain at tooth #[id number]. Patient states he has partial fracture of those teeth and is yet to see a dentist. Patient also reports he has developed pain around his left shoulder blade about 2 weeks ago which now radiates to the left side of the chest. 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 States the pain is mostly located on the left side of her chest without any radiation and is reproducible palpation. States he is a smoker. - Related Data Home Medications Medication Instructions Recorded Confirmed Acetaminophen Tab [Tylenol Tab] 650 mg PO Q4H PRN 05/23/17 05/23/17 Calcium 1000mg Magnesium 500mg 1 tab PO TID PRN 05/23/17 05/23/17 Chlorpheniramine Maleate 4 mg PO Q4H PRN 05/23/17 05/23/17 [Chlor-Trimeton] LORazepam [Ativan] 1 - 2 mg PO DIRECTED 05/23/17 05/23/17 Multivitamins, Thera [Multivitamin 1 tab PO DAILY 05/23/17 05/23/17 (formulary)] Ondansetron HCl [Zofran] 8 mg PO Q6H PRN 05/23/17 05/23/17 Ondansetron [Zofran] 4 mg IM Q6H PRN 05/23/17 05/23/17 Thiamine [Vitamin B-1] 100 mg PO DAILY 05/23/17 05/23/17 busPIRone HCl [Buspar] 10 mg PO TID PRN 05/23/17 05/23/17 traZODone HCL 50 - 150 mg PO HS 05/23/17 05/23/17 Previous Rx's Medication Instructions Recorded Omeprazole [PriLOSEC] 40 mg PO AC-BRKFST #14 capsule. 05/25/17 Ondansetron Odt [Zofran Odt] 4 mg PO Q6HR PRN #20 tab 05/25/17 Amoxicillin/Potassium Clav 1 tab PO Q12HR #20 tab 03/19/20 [Augmentin 875-125 Tablet] Allergies Allergy/AdvReac Type Severity Reaction Status Date / Time No Known Allergies Allergy Verified 03/19/20 11:05 Review of Systems ROS Statement: Those systems with pertinent positive or pertinent negative responses have been documented in the HPI. ROS Other: All systems not noted in ROS Statement are negative. Past Medical History Past Medical History: No Reported History Additional Past Medical History / Comment(s): back pain, iv drug user (cocaine, heroin) - clean 1 yr, on methadone, hep c History of Any Multi-Drug Resistant Organisms: None Reported Past Surgical History: No Surgical Hx Reported Past Anesthesia/Blood Transfusion Reactions: No Reported Reaction Past Psychological History: No Psychological Hx Reported Smoking Status: Current every day smoker Past Alcohol Use History: None Reported Past Drug Use History: Cocaine, Heroin, IV Drug Use, Marijuana - Past Family History Mother Family Medical History: No Reported History General Exam Limitations: no limitations General appearance: alert, in no apparent distress Head exam: Present: atraumatic, normocephalic, normal inspection Eye exam: Present: normal appearance, PERRL, EOMI Pupils: Present: normal accommodation ENT exam: Present: normal exam, mucous membranes moist. Absent: normal oropharynx (Poor dentition. Partial fracture of teeth #18, 19 and 20. No signs of periapical abscess. Surrounding erythema on the gum line.) Neck exam: Present: normal inspection, full ROM Respiratory exam: Present: normal lung sounds bilaterally, chest wall tenderness (Pectoral tenderness on the left side with palpation. Pain exacerbated with adduction with left upper shoulder.). Absent: respiratory distress, wheezes Cardiovascular Exam: Present: regular rate, normal rhythm, normal heart sounds GI/Abdominal exam: Present: soft. Absent: distended, tenderness, guarding, rebound Extremities exam: Present: normal inspection, full ROM, normal capillary refill, other (+2 ulnar and radial pulses bilaterally.) Back exam: Present: normal inspection, full ROM, other (Scarring noted on the right mid back region where supposedly the patient had an abscess.). Absent: tenderness (Vital signs of tenderness near the left shoulder scapula.) Neurological exam: Present: alert, oriented X3 Psychiatric exam: Present: normal affect, normal mood Skin exam: Present: warm, dry, intact, normal color Course Vital Signs 03/19/20 11:02 Temperature 98.0 F Pulse Rate 90 Respiratory 18 Rate Blood Pressure 140/74 O2 Sat by Pulse 100 Oximetry EKG Findings - EKG Comments: EKG Findings:: Sinus arrhythmia, no ST or T-wave changes. Ventricular rate 66, [place] 172, QRS 104, QTC 442. Medical Decision Making - Medical Decision Making Patient is a 35-year-old male presenting to the emergency department for multiple chief complaints. Exam patient does have partial fracture of tooth #1819 and 20 along with some gingival irritation. Mental block and a left inferior alveolar block was used with lidocaine with epinephrine. Patient tolerated the procedure well. Patient started on Augmentin in the ED and will be discharged with a 10 day course of Augmentin. The left-sided chest pain patient is experiencing appears to be related to his job and a suspect there is an underlying musculoskeletal etiology. Atypical chest pain. Chest x-ray is unremarkable. EKG shows sinus arrhythmia with no ST or T-wave changes. CBC and CMP are unremarkable. UA is negative for UTI. No signs of dehydration. I suspect the nausea related to his use of marijuana. I advised the patient to establish care with a PCP. I counseled the patient for smoking cessation for greater than 3 minutes. Return parameters thoroughly discussed with patient is understanding and agreeable. Case discussed with physician. - Lab Data Result diagrams: 03/19/20 11:47 03/19/20 11:47 Lab Results 03/19/20 03/19/20 03/19/20 Range/Units 11:47 11:47 11:47 WBC 11.2 H (3.8-10.6) k/uL RBC 5.03 (4.30-5.90) m/uL Hgb 14.8 (13.0-17.5) gm/dL Hct 46.6 (39.0-53.0) % MCV 92.7 (80.0-100.0) fL MCH 29.5 (25.0-35.0) pg MCHC 31.8 (31.0-37.0) g/dL RDW 13.5 (11.5-15.5) % Plt Count 275 (150-450) k/uL Neutrophils % 55 % Lymphocytes % 33 % Monocytes % 6 % Eosinophils % 2 % Basophils % 1 % Neutrophils # 6.2 (1.3-7.7) k/uL Lymphocytes # 3.6 (1.0-4.8) k/uL Monocytes # 0.7 (0-1.0) k/uL Eosinophils # 0.2 (0-0.7) k/uL Basophils # 0.1 (0-0.2) k/uL Sodium 139 (137-145) mmol/L Potassium 4.0 (3.5-5.1) mmol/L Chloride 105 (98-107) mmol/L Carbon Dioxide 24 (22-30) mmol/L Anion Gap 10 mmol/L BUN 13 (9-20) mg/dL Creatinine 0.66 (0.66-1.25) mg/dL Est GFR (CKD-EPI)AfAm >90 (>60 ml/min/1.73 sqM) Est GFR (CKD-EPI)NonAf >90 (>60 ml/min/1.73 sqM) Glucose 105 H (74-99) mg/dL Calcium 9.2 (8.4-10.2) mg/dL Total Bilirubin 0.5 (0.2-1.3) mg/dL AST 43 (17-59) U/L ALT 107 H (4-49) U/L Alkaline Phosphatase 56 (38-126) U/L Total Protein 7.9 (6.3-8.2) g/dL Albumin 4.3 (3.5-5.0) g/dL Lipase 24 (23-300) U/L Urine Color Yellow Urine Appearance Clear (Clear) Urine pH 5.5 (5.0-8.0) Ur Specific [place] 1.021 (1.001-1.035) Urine Protein Negative (Negative) Urine Glucose (UA) Negative (Negative) Urine Ketones Negative (Negative) Urine Blood Negative (Negative) Urine Nitrite Negative (Negative) Urine Bilirubin Negative (Negative) Urine Urobilinogen <2.0 (<2.0) mg/dL Ur Leukocyte Esterase Negative (Negative) Disposition Clinical Impression: Pain, dental, Fractured tooth, Atypical chest pain Disposition: HOME SELF-CARE Condition: Stable Instructions (If sedation given, give patient instructions): Chest Pain (ED) Additional Instructions: Take prescribed medication as directed. Avoid eating acidic foods, drinking pop, coffee or energy drinks. Obtained a primary care physician. Return to emergency department if symptoms worsen. Prescriptions: Amoxicillin/Potassium Clav [Augmentin 875-125 Tablet] 1 tab PO Q12HR #20 tab Is patient prescribed a controlled substance at d/c from ED?: No Referrals: None,Stated [Primary Care Provider] - 1-2 days Andrae Pressley [STAFF PHYSICIAN] - 1-2 days Time of Disposition: 12:32
[2020-03-19 11:59] LABS: Appearance,Urine Clear (Clear); Bilirubin,Urine Negative (Negative); Blood,Urine Negative (Negative); Color,Urine Yellow; Glucose,Urine (UA) Negative (Negative); Ketones,Urine Negative (Negative); Leukocyte Esterase,Urine Negative (Negative); Nitrite,Urine Negative (Negative); PH, Urine 5.5 (5.0-8.0); Protein,Urine Negative (Negative); Specific Gravity,Urine 1.021 (1.001-1.035); Urobilinogen,Urine <2.0 mg/dL (<2.0)
[2020-03-19 12:03] LABS: Basophils # (A) 0.1 k/uL (0-0.2); Basophils % (A) 1 %; Eosinophils # (A) 0.2 k/uL (0-0.7); Eosinophils % (A) 2 %; HCT 46.6 % (39.0-53.0); HGB 14.8 gm/dL (13.0-17.5); Lymphocytes # (A) 3.6 k/uL (1.0-4.8); Lymphocytes % (A) 33 %; MCH 29.5 pg (25.0-35.0); MCHC 31.8 g/dL (31.0-37.0); MCV 92.7 fL (80.0-100.0); Mean Platelet Volume 7.8; Monocytes # (A) 0.7 k/uL (0-1.0); Monocytes % (A) 6 %; Neutrophils # (A) 6.2 k/uL (1.3-7.7); Neutrophils % (A) 55 %; Platelet Count 275 k/uL (150-450); RBC 5.03 m/uL (4.30-5.90); RDW 13.5 % (11.5-15.5); WBC 11.2 k/uL (3.8-10.6)
[2020-03-19 12:08] LABS: ALT 107 U/L (4-49); AST 43 U/L (17-59); African American GFR (CKD) >90 (>60 ml/min/1.73 sqM); Albumin 4.3 g/dL (3.5-5.0); Alkaline Phosphatase 56 U/L (38-126); Anion Gap 10 mmol/L; Blood Urea Nitrogen 13 mg/dL (9-20); Calcium 9.2 mg/dL (8.4-10.2); Carbon Dioxide 24 mmol/L (22-30); Chloride 105 mmol/L (98-107); Glucose 105 mg/dL (74-99); Non-African American GFR(CKD) >90 (>60 ml/min/1.73 sqM); Sodium 139 mmol/L (137-145); Total Bilirubin 0.5 mg/dL (0.2-1.3); Total Protein 7.9 g/dL (6.3-8.2)
--- NOTE | 2020-03-19 12:12 | XR ---
EXAMINATION TYPE: XR chest 2V DATE OF EXAM: 03/19/2020 COMPARISON: NONE HISTORY: Abdominal and chest pain TECHNIQUE: Frontal and lateral views of the chest are obtained. FINDINGS: There is no focal air space opacity, pleural effusion, or pneumothorax seen. The cardiac silhouette size is within normal limits. The osseous structures are intact. IMPRESSION: No acute cardiopulmonary process.
[2020-03-19] MEDS ORDERED: ACET/COD 300 MG/30 MG STARTER PACK 6 TAB BTL PO STA (12:36)
[2020-03-19 12:48] VITALS: BP 126/90; PULSE 56
== END 2020-03-19 12:42 | disposition home or self-care (01) ==
LOC: EC 11:01
DX: S02.5XXA Fracture of tooth (traumatic), initial encounter for closed fracture (principal); K08.89 Other specified disorders of teeth and supporting structures; R07.89 Other chest pain; F17.200 Nicotine dependence, unspecified, uncomplicated; Z71.6 Tobacco abuse counseling; Z79.899 Other long term (current) drug therapy; X58.XXXA Exposure to other specified factors, initial encounter
CPT/HCPCS: 36415; 93005; 80053; 83690; 85025; 81003; 71046; 99285; 64400; 99406; 96374; 96361; C9113

== ENCOUNTER 2023-06-27 15:05 | Inpatient (IN) | payer OTHER ==
--- NOTE | 2023-06-27 16:43 | XR ---
EXAMINATION TYPE: XR hand complete 3 views LT DATE OF EXAM: 06/27/2023 Comparison: 06/07/2011 Clinical History: 38-year-old male increased left hand pain and swelling after punching a wall, [place] a Findings: Mild degenerative change first MCP joint. Marked dorsal soft tissue swelling. Bony irregularity along the radial aspect of the first metacarpal head suggesting old arterial injury. No acute fracture, grant bluxation, dislocation seen. Impression: Marked dorsal soft tissue swelling. No acute osseous abnormality seen.
[2023-06-27 16:54] LABS: Basophils % (A) 0 %; Eosinophils # (A) 0.2 k/uL (0-0.7); Eosinophils % (A) 2 %; HCT 42.1 % (39.0-53.0); HGB 13.5 gm/dL (13.0-17.5); Lymphocytes # (A) 3.9 k/uL (1.0-4.8); Lymphocytes % (A) 30 %; MCH 27.9 pg (25.0-35.0); MCV 87.3 fL (80.0-100.0); Mean Platelet Volume 7.8; Monocytes # (A) 0.8 k/uL (0-1.0); Monocytes % (A) 6 %; Neutrophils # (A) 7.7 k/uL (1.3-7.7); Neutrophils % (A) 60 %; Platelet Count 313 k/uL (150-450); RBC 4.83 m/uL (4.30-5.90); RDW 13.9 % (11.5-15.5); WBC 12.9 k/uL (3.8-10.6)
--- NOTE | 2023-06-27 17:39 | ED ---
General Adult HPI - General Chief complaint: Extremity Injury, Upper Stated complaint: L hand injury Time Seen by Provider: 06/27/23 15:45 Source: patient, RN notes reviewed, old records reviewed Mode of arrival: ambulatory Limitations: no limitations - History of Present Illness Initial comments: This is a 38-year-old male who presents emergency Department from [facility]. Patient states he was injecting in his hand between his knuckles on his left hand and now it's swollen and tender and he believes he has an infection. Patient also states he did punch a wall recently but he doesn't think that necessarily associated with it. Patient denies any wrist pain. Patient denies any other issues at this time. Patient denies any fever chills. Patient states the swelling and redness and pain are definitely getting worse - Related Data Home Medications Medication Instructions Recorded Confirmed Acetaminophen Tab [Tylenol Tab] 650 mg PO Q4H PRN 05/23/17 05/23/17 Calcium 1000mg Magnesium 500mg 1 tab PO TID PRN 05/23/17 05/23/17 Chlorpheniramine Maleate 4 mg PO Q4H PRN 05/23/17 05/23/17 [Chlor-Trimeton] LORazepam [Ativan] 1 - 2 mg PO DIRECTED 05/23/17 05/23/17 Multivitamins, Thera [Multivitamin 1 tab PO DAILY 05/23/17 05/23/17 (formulary)] Ondansetron [Zofran] 4 mg IM Q6H PRN 05/23/17 05/23/17 Thiamine [Vitamin B-1] 100 mg PO DAILY 05/23/17 05/23/17 busPIRone HCl [Buspar] 10 mg PO TID PRN 05/23/17 05/23/17 ondansetron HCL [Zofran] 8 mg PO Q6H PRN 05/23/17 05/23/17 traZODone HCL 50 - 150 mg PO HS 05/23/17 05/23/17 Previous Rx's Medication Instructions Recorded Omeprazole [PriLOSEC] 40 mg PO ELIANE-BRKFST #14 capsule. 05/25/17 Ondansetron Odt [Zofran Odt] 4 mg PO Q6HR PRN #20 tab 05/25/17 Amoxicillin/Potassium Clav 1 tab PO Q12HR #20 tab 03/19/20 [Augmentin 875-125 Tablet] Allergies Allergy/AdvReac Type Severity Reaction Status Date / Time No Known Allergies Allergy Verified 06/27/23 15:39 Review of Systems ROS Statement: Those systems with pertinent positive or pertinent negative responses have been documented in the HPI. ROS Other: All systems not noted in ROS Statement are negative. 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 Patient is in mild distress. EYES Patient's pupils are equal and round. Extraocular motion is intact SKIN Unremarkable NEURO The patient is alert and oriented 3 PYSCH Patient has normal interpersonal interactions. MUSCULOSKELETAL Left hand at the fourth MCP is swollen and tender fluctuant and warm Limitations: no limitations Course Vital Signs 06/27/23 06/27/23 06/27/23 15:37 16:25 17:53 Temperature 98.0 F 97.7 F 97.9 F Pulse Rate 70 65 76 Respiratory 20 16 18 Rate Blood Pressure 117/71 125/74 121/79 O2 Sat by Pulse 99 100 100 Oximetry 06/27/23 18:42 Temperature 97.7 F Pulse Rate 70 Respiratory 16 Rate Blood Pressure 125/83 O2 Sat by Pulse 100 Oximetry Medical Decision Making - Medical Decision Making Was pt. sent in by a medical professional or institution (, [place], [facility], urgent care, hospital, or snf...) When possible be specific @ -[facility] sent the patient in Did you speak to anyone other than the patient for history (EMS, parent, family, police, friend...)? What history was obtained from this source @ -No Did you review nursing and triage notes (agree or disagree)? Why? @ -I reviewed and agree with nursing and triage notes Were old charts reviewed (outside hosp., previous admission, EMS record, old EKG, old radiological studies, urgent care reports/EKG's, snf records)? Report findings @ -No old charts were reviewed Differential Diagnosis (chest pain, altered mental status, abdominal pain women, abdominal pain men, vaginal bleeding, weakness, fever, dyspnea, syncope, heada noah, dizziness, GI bleed, back pain, seizure, CVA, palpatations, mental health, musculoskeletal)? @ -Differential Fever: Pneumonia, viral URI, endocarditis, myocarditis, pericarditis, otitis, sinusitis, peritonsillar Abscess, retropharyngeal Abscess, epiglottitis, peritonitis, appendicitis, Mackenzie cystitis, diverticulitis, hepatitis, colitis, UTI, PID, TOA, pyelonephritis, prostatitis, epididymitis, meningitis, encephalitis, pulmonary embolism, CVA, thyroid storm, pancreatitis, adrenal crisis, cavernous sinus thrombosis, this is not meant to be an all-inclusive list. EKG interpreted by me (3pts min.). @ -As above X-rays interpreted by me (1pt min.). @ -X-ray shows no bony abnormality CT interpreted by me (1pt min.). @ -None done U/S interpreted by me (1pt. min.). @ -None done What testing was considered but not performed or refused? (CT, X-rays, U/S, labs)? Why? @ -None What meds were considered but not given or refused? Why? @ -None Did you discuss the management of the patient with other professionals (professionals i.e. , [place], [facility], lab, RT, psych nurse, director of social services, plant clerk, teacher, gift officer, watch case polisher)? Give summary @ -I spoke with some physicians that he agreed to admit the patient Was smoking cessation discussed for >3mins.? @ -No Was critical care preformed (if so, how long)? @ -No Were there social determinants of health that impacted care today? How? (Homele ssness, low income, unemployed, alcoholism, drug addiction, transportation, low edu. Level, literacy, decrease access to med. care, halfway, rehab)? @ -No Was there de-escalation of care discussed even if they declined (Discuss DNR or withdrawal of care, Hospice)? DNR status @ -No What co-morbidities impacted this encounter? (DM, HTN, Smoking, COPD, CAD, Cancer, CVA, ARF, Chemo, Hep., AIDS, mental health diagnosis, sleep apnea, morbid obesity)? @ -None Was patient admitted / discharged? Hospital course, mention meds given and route, prescriptions, significant lab abnormalities, going to OR and other pertinent info. @ -Patient had a probable hand abscess I started the patient on vancomycin spoke with some physicians and they agreed to admit the patient I consulted orthopedics Undiagnosed new problem with uncertain prognosis? @ -No Drug Therapy requiring intensive monitoring for toxicity (Heparin, Nitro, Insulin, Cardizem)? @ -No Were any procedures done? @ -No Diagnosis/symptom? @ -Hand abscess Acute, or Chronic, or Acute on Chronic? @ -Acute Uncomplicated (without systemic symptoms) or Complicated (systemic symptoms)? @ -Complicated Side effects of treatment? @ -No Exacerbation, Progression, or Severe Exacerbation? @ -No Poses a threat to life or bodily function? How? (Chest pain, [place], [place], pneumonia, PE, COPD, DKA, ARF, appy, cholecystitis, CVA, Diverticulitis, Homicidal, Suicidal, threat to staff... and all critical care pts) @ -Yes this could lead to sepsis and end organ dysfunction - Lab Data Result diagrams: 06/27/23 16:10 06/27/23 18:18 Lab Results 06/27/23 06/27/23 06/27/23 Range/Units 16:10 16:10 18:18 WBC 12.9 H (3.8-10.6) k/uL RBC 4.83 (4.30-5.90) m/uL Hgb 13.5 (13.0-17.5) gm/dL Hct 42.1 (39.0-53.0) % MCV 87.3 (80.0-100.0) fL MCH 27.9 (25.0-35.0) pg MCHC 32.0 (31.0-37.0) g/dL RDW 13.9 (11.5-15.5) % Plt Count 313 (150-450) k/uL MPV 7.8 Neutrophils % 60 % Lymphocytes % 30 % Monocytes % 6 % Eosinophils % 2 % Basophils % 0 % Neutrophils # 7.7 (1.3-7.7) k/uL Lymphocytes # 3.9 (1.0-4.8) k/uL Monocytes # 0.8 (0-1.0) k/uL Eosinophils # 0.2 (0-0.7) k/uL Basophils # 0.0 (0-0.2) k/uL Sodium 137 (137-145) mmol/L Potassium 4.1 (3.5-5.1) mmol/L Chloride 103 (98-107) mmol/L Carbon Dioxide 25 (22-30) mmol/L Anion Gap 9 mmol/L BUN 15 (9-20) mg/dL Creatinine 0.77 (0.66-1.25) mg/dL Est GFR (CKD-EPI)AfAm >90 (>60 ml/min/1.73 sqM) Est GFR (CKD-EPI)NonAf >90 (>60 ml/min/1.73 sqM) Glucose 95 (74-99) mg/dL Plasma Lactic Acid Hugh 1.0 (0.7-2.0) mmol/L Calcium 9.8 (8.4-10.2) mg/dL Magnesium 2.0 (1.6-2.3) mg/dL Total Bilirubin 0.4 (0.2-1.3) mg/dL AST 16 L (17-59) U/L ALT 13 (4-49) U/L Alkaline Phosphatase 44 (38-126) U/L Total Protein 7.8 (6.3-8.2) g/dL Albumin 4.0 (3.5-5.0) g/dL Disposition Clinical Impression: Abscess of hand Disposition: ADMITTED IP TO THIS [facility] Referrals: None,Stated [Primary Care Provider] - 1-2 days Time of Disposition: 19:28
[2023-06-27] MEDS ORDERED: VANCOMYCIN IV PER PHARMACY 1 EACH MISC MISCELLANE PRN (18:32)
[2023-06-27] MEDS ORDERED: KETOROLAC 15 MG/ML 1 ML VIAL IVP STA (18:33)
[2023-06-27 18:40] LABS: ALT 13 U/L (4-49); AST 16 U/L (17-59); African American GFR (CKD) >90 (>60 ml/min/1.73 sqM); Alkaline Phosphatase 44 U/L (38-126); Anion Gap 9 mmol/L; Blood Urea Nitrogen 15 mg/dL (9-20); Calcium 9.8 mg/dL (8.4-10.2); Carbon Dioxide 25 mmol/L (22-30); Chloride 103 mmol/L (98-107); Glucose 95 mg/dL (74-99); Non-African American GFR(CKD) >90 (>60 ml/min/1.73 sqM); Potassium 4.1 mmol/L (3.5-5.1); Sodium 137 mmol/L (137-145); Total Bilirubin 0.4 mg/dL (0.2-1.3); Total Protein 7.8 g/dL (6.3-8.2)
[2023-06-27] MEDS ORDERED: VANCOMYCIN 1,250 MG in SODIUM CHLORIDE 0.9% 250 ML IVPB ONE (19:00)
[2023-06-27] MEDS ORDERED: SODIUM CHLORIDE 0.9% 1,000 ML IV ONE (19:28)
[2023-06-27] MEDS ORDERED: PIPERACILLIN-TAZOBACTAM 3.375 GM in SODIUM CHLORIDE 0.9% 100 ML IVPB STA (19:29)
[2023-06-28] MEDS ORDERED: HYDROmorphone 0.5 MG/0.5 ML SYRINGE IVP STA (00:38)
[2023-06-28] MEDS: PIPERACILLIN-TAZOBACTAM 3.375 GM in SODIUM CHLORIDE 0.9% 100 ML IVPB SCH ×4 (01:17→17:11)
[2023-06-28] MEDS: VANCOMYCIN 1,250 MG in SODIUM CHLORIDE 0.9% 250 ML IVPB SCH ×5 (01:46→18:05)
[2023-06-28] MEDS ORDERED: VANCOMYCIN IV PER PHARMACY 1 EACH MISC MISCELLANE PRN (01:55)
--- NOTE | 2023-06-28 02:06 | P.HPIM ---
History of Present Illness H&P Date: 06/27/23 Chief Complaint: Left hand swelling 38-year-old male with hepatitis C and IV drug abuse He is coming in from [place] due to increased swelling redness and pain in his left hand he went [place] on Friday for drug rehab he admits to injecting drugs between his finger knuckles under the skin he uses heroin cocaine and fentanyl he admits to prior history of infections denies any history of endocarditis. He currently denies any fevers or chills denies any chest pain or trouble breathing denies any nausea vomiting abdominal pain denies any GI bleeding changes in urinary or bowel habits He noticed left hand swelling since his last use over the past 4-5 days increase in swelling and pain with erythema now he can't make a fist and pain getting worse for which she decided come in for evaluation. Patient admits to tobacco smoking polysubstance abuse denies any history of alcohol review of systems Pertinent positives as noted in HPI. All other systems were reviewed and are negative on exam Constitutional: No acute distress, conversant, pleasant Eyes: Anicteric sclerae, moist conjunctiva, Pupils equal round reactive to light ENMT: NC/AT Oropharynx clear, no erythema, or exudates Lungs: Clear to auscultation Clear to percussion Normal respiratory effort, no accessory muscle use Cardiovascular: Heart regular in rate and rhythm, No murmurs, gallops, or rubs No peripheral edema Abdominal: Soft Nontender, no guarding, rebound or rigidity Abdomen moving with respiration Normoactive bowel sounds No hepatomegaly, No splenomegaly No palpable mass No abdominal wall hernia noted Skin: Swelling and erythema warmth to the touch and tenderness of the left hand unable to make a fist no drainage no open wounds Extremities: No digital cyanosis No clubbing Pedal pulses intact and symmetrical Radial pulses intact and symmetrical No calf tenderness Psychiatric: Alert and oriented to person, place and time Appropriate affect Neuro Muscles Strength 5/5 in all 4 extremities Sensation to light touch grossly present throughout Cranial nerves II-XII grossly intact Lymphatics: no palpable cervical or supraclavicular lymph nodes Past Medical History Past Medical History: No Reported History Additional Past Medical History / Comment(s): back pain, iv drug user (cocaine, heroin), on methadone, hep c History of Any Multi-Drug Resistant Organisms: None Reported Past Surgical History: No Surgical Hx Reported Past Anesthesia/Blood Transfusion Reactions: No Reported Reaction Past Psychological History: No Psychological Hx Reported Smoking Status: Current every day smoker Past Alcohol Use History: None Reported Past Drug Use History: Cocaine, Heroin, IV Drug Use, Marijuana - Past Family History Mother Family Medical History: No Reported History Medications and Allergies Home Medications Medication Instructions Recorded Confirmed Type Methadone HCl [Methadone Intensol] 79 mg PO DAILY 06/27/23 06/27/23 History Allergies Allergy/AdvReac Type Severity Reaction Status Date / Time No Known Allergies Allergy Verified 06/27/23 20:32 Physical Exam Vitals: Vital Signs Temp Pulse Pulse Resp BP BP Pulse Ox 06/28/23 01:44 98.4 F 63 19 112/64 97 06/27/23 23:56 99.5 F 87 17 133/78 97 06/27/23 23:22 70 18 116/67 98 06/27/23 22:00 70 18 116/67 06/27/23 18:42 97.7 F 70 16 125/83 100 06/27/23 17:53 97.9 F 76 18 121/79 100 06/27/23 16:25 97.7 F 65 16 125/74 100 06/27/23 15:37 98.0 F 70 20 117/71 99 Intake and Output 06/27/23 06/27/23 06/28/23 14:59 22:59 06:59 Other: Weight 71.668 kg 71.668 kg Results CBC & Chem 7: 06/27/23 16:10 06/27/23 18:18 Labs: Abnormal Lab Results - Last 24 Hours (Table) 06/27/23 06/27/23 Range/Units 16:10 18:18 WBC 12.9 H (3.8-10.6) k/uL AST 16 L (17-59) U/L Thrombosis Risk Factor Assmnt - Choose All That Apply Any of the Below Risk Factors Present?: No Other Risk Factors: No Other congenital or acquired thrombophilia - If yes, enter type in comment: No Thrombosis Risk Factor Assessment Level: Very Low Risk Assessment and Plan Assessment: 38-year-old male with polysubstance abuse coming in for left hand swelling and suspected infection secondary to injection of street drugs I discussed the case with the ED doctor I accepted the admission for hand cellulitis and swelling secondary to IV drug abuse with anticipated length of stay more than 2 midnights Polysubstance abuse Left hand cellulitis rule out abscess formation Follow-up cultures X-ray of the hand showed no bony involvement Leukocytosis white count 12.9 Continue with vancomycin dosing by pharmacy Zosyn 3.5 g IV piggyback every 8 hours Tylenol for fever Dilaudid 0.5 mg IV push every 3 hours when necessary Toradol 50 mg IV push every 6 hours when necessary Monitor neurovascular exam of the left hand ID consultation History of hepatitis C Polysubstance abuse patient counseled to quit drug of abuse Renal function unremarkable BUN 13 creatinine 0.7 sodium 137 potassium 4.1 Full code DVT prophylaxis heparin subcu 3 times a day
[2023-06-28] MEDS: SODIUM CHLORIDE 0.9% 1,000 ML IV SCH ×2 (02:51→17:12)
[2023-06-28] MEDS: ACETAMINOPHEN TAB 325 MG TAB PO PRN ×2 (03:17→15:59)
[2023-06-28] MEDS ORDERED: HYDROmorphone 0.5 MG/0.5 ML SYRINGE IM STA (05:53)
[2023-06-28] MEDS ORDERED: HYDROcodone/APAP 7.5-325MG 1 EACH TAB PO ONE (05:53)
[2023-06-28] MEDS: HEPARIN SODIUM,PORCINE 5,000 UNIT/ML 1 ML VIAL SQ SCH ×2 (08:11→15:08)
[2023-06-28] MEDS: METHADONE 10 MG TAB PO SCH (09:21)
--- NOTE | 2023-06-28 13:19 | P.PN ---
Subjective Progress Note Date: 06/28/23 Hospital course: Patient is a 38-year-old male with a past medical history of hepatitis C and IVDA and polysubstance abuse with heroin, cocaine, and fentanyl. He presented to the hospital on 06/27/23 from [facility] [place] secondary to left hand pain and swelling. Patient reports last injecting fentanyl between knuckles on 06/24/23. X-ray left hand was completed showing mild degenerative change and first MCP joint with marked dorsal soft tissue swelling but negative for reports of acute osseous abnormalities. Labs completed and reviewed showing leukocytosis with WBC count of 12.9. Lactate normal findings at 1.0. BMP unremarkable and liver profile also normal findings. Patient started on IV antibiotics of vancomycin and Zosyn and admitted under our services with consultation to infectious disease and orthopedic surgery. Physical exam: Vital signs reviewed and stable. General: Nontoxic, no distress and appears stated age. Derm: Skin warm and dry, normal coloration for ethnicity. Patient with moderate erythema and swelling to left hand extending down into fingers and upwards into wrist. Patient unable to make a fist and with limited movement of fingers and thumb. Head: Atraumatic, normocephalic and symmetric. Eyes: EOMs intact, no lid lag, and anicteric sclera Mouth: no lip lesions, mucus membranes moist Cardiovascular: regular rate and rhythm with normal S1S2, no murmur, positive posterior tibial pulses bilaterally, and cap refill < 2 seconds. Lungs: Respirations even, regular, and unlabored on room air. Lungs CTA bilaterally, no rhonchi, no rales, no wheezing, and no accessory muscle usage. Abdominal: soft, nontender to palpation, no guarding, no appreciable organomegaly Ext: No gross muscle atrophy, no edema, no contractures. Patient unable to make a fist with left hand and with limited movement of fingers and thumb secondary to pain and swelling. Neuro: Speech clear, face symmetrical and CN II-XII grossly intact with no noted focal neuro deficits Psych: Alert and oriented to person, place, time, and situation. Appropriate and pleasant affect. Assessment and Plan of Care: Cellulitis of left hand with concerns of possible abscess secondary to IVDA Polysubstance abuse with heroin, cocaine, and fentanyl IVDA Hepatitis C -Continue IV antibiotics of vancomycin and Zosyn. -Monitor renal function and vancomycin trough closely to monitor for any signs of vancomycin-induced renal toxicity -Infectious disease consulted -Orthopedic surgery consulted for possible I&D and evaluation as patient has li mited movement with left hand. -Continue with symptomatic care and pain management with Toradol 15 mg IVP every 6 hours as needed for mild to moderate pain and Dilaudid 0.5 mg IVP every 3 hours for severe pain. Data reviewed: -Labs completed and reviewed showing leukocytosis with WBC count of 12.9. Lactate normal findings at 1.0. BMP unremarkable and liver profile also normal findings. Imaging reviewed: -X-ray left hand was completed showing mild degenerative change and first MCP joint with marked dorsal soft tissue swelling but negative for reports of acute osseous abnormalities. CODE STATUS: full code DVT prophylaxis: Heparin Discussed with: patient and RN Anticipated discharge date: Clinical course to determine Anticipated discharge place: Home/Return to [facility] Patient was seen independently by Nurse Pracitioner. This document was prepared using [employer] dictation software. Please allow for errors in medical pathologist, while rare they do occur. Josué Vega NP rendered care for this patient independently, reviewed the findings and plan as documented in the note above. I did not physically speak with or examine the patient on this date. Objective - Vital Signs Vital signs: Vital Signs Temp 98 F 06/28/23 08:27 Pulse 60 06/28/23 08:27 Resp 18 06/28/23 08:27 BP 105/64 06/28/23 08:27 Pulse Ox 99 06/28/23 08:27 FiO2 Intake & Output 06/27/23 06/28/23 06/28/23 18:59 06:59 18:59 Weight 71.668 kg 71.668 kg Other: # Voids 2 - Labs CBC & Chem 7: 07/01/23 07:15 07/02/23 10:04 Labs: Abnormal Lab Results - Last 24 Hours (Table) 06/27/23 06/27/23 Range/Units 16:10 18:18 WBC 12.9 H (3.8-10.6) k/uL AST 16 L (17-59) U/L
[2023-06-28] MEDS: HYDROmorphone 0.5 MG/0.5 ML SYRINGE IVP PRN (19:45)
--- NOTE | 2023-06-28 23:33 | P.CONS ---
History of Present Illness - Reason for Consult Consult date: 06/28/23 - History of Present Illness Patient is a 38-year-old male with a past medical history significant for IV drug use presenting to the hospital with increasing pain redness and swelling to the left hand patient did mention injecting to the area on Friday and noticed to having increasing swelling redness the very next day on Friday the area has become more swollen red and painful patient describes the pain to be throbbing with intensity 10 out of 10 without any radiation patient did have some chills but denies high-grade fever with the center the patient was evaluated in the ER on presentation to the hospital the patient was afebrile and no fever has been recorded subsequently patient did have a white count of 12.9 kidney function was normal exams are normal blood culture has been obtained which are currently pending patient did have x-ray of the hand marked dorsal soft tissue swelling no acute bony abnormality patient was started on vancomycin and Zosyn infectious disease was consulted for further management of antibiotic therapy Past Medical History Past Medical History: No Reported History Additional Past Medical History / Comment(s): back pain, iv drug user (cocaine, heroin), on methadone, hep c History of Any Multi-Drug Resistant Organisms: None Reported Past Surgical History: No Surgical Hx Reported Past Anesthesia/Blood Transfusion Reactions: No Reported Reaction Past Psychological History: No Psychological Hx Reported Smoking Status: Current every day smoker Past Alcohol Use History: None Reported Past Drug Use History: Cocaine, Heroin, IV Drug Use, Marijuana - Past Family History Mother Family Medical History: No Reported History Medications and Allergies Home Medications Medication Instructions Recorded Confirmed Type Methadone HCl [Methadone Intensol] 79 mg PO DAILY 06/27/23 06/27/23 History Allergies Allergy/AdvReac Type Severity Reaction Status Date / Time No Known Allergies Allergy Verified 06/27/23 20:32 Physical Exam Vitals: Vital Signs Temp Pulse Pulse Pulse Resp BP BP 06/28/23 13:26 98.5 F 60 18 107/74 06/28/23 08:28 64 06/28/23 08:27 98 F 60 18 105/64 06/28/23 07:28 98.3 F 64 19 119/82 06/28/23 01:44 98.4 F 63 19 112/64 06/27/23 23:56 99.5 F 87 17 133/78 06/27/23 23:22 70 18 116/67 06/27/23 22:00 70 18 116/67 06/27/23 18:42 97.7 F 70 16 125/83 06/27/23 17:53 97.9 F 76 18 121/79 06/27/23 16:25 97.7 F 65 16 125/74 06/27/23 15:37 98.0 F 70 20 117/71 Pulse Ox 06/28/23 13:26 98 06/28/23 08:28 06/28/23 08:27 99 06/28/23 07:28 100 06/28/23 01:44 97 06/27/23 23:56 97 06/27/23 23:22 98 06/27/23 22:00 06/27/23 18:42 100 06/27/23 17:53 100 06/27/23 16:25 100 06/27/23 15:37 99 Intake and Output 06/28/23 06/28/23 06/28/23 06:59 14:59 22:59 Other: # Voids 2 Weight 71.668 kg Results CBC & Chem 7: 06/27/23 16:10 06/27/23 18:18 Labs: Abnormal Lab Results - Last 24 Hours (Table) 06/27/23 06/27/23 Range/Units 16:10 18:18 WBC 12.9 H (3.8-10.6) k/uL AST 16 L (17-59) U/L Assessment and Plan Plan: 1patient was in the hospital with the left hand dorsomedial swelling redness pain secondary to the IV drug use concerning for development of underlying abscess likely from gram-positive skin shiv underlying gram-negative infection less likely but not entirely excluded. 2await orthopedics evaluation for possible I&D and deep culture. 3we will continue patient on vancomycin however discontinue Zosyn to decrease risk of nephrotoxicity and add cefepime for gram-negative coverage. 4check inflammatory markers. We will follow on clinical condition and cultures to further adjust medication if needed Thank you for this consultation we will follow the patient along with you Dictation was produced using [employer] dictation software. please excuse any grammatical, word or spelling errors. Time with Patient: Greater than 30
[2023-06-29] MEDS: HEPARIN SODIUM,PORCINE 5,000 UNIT/ML 1 ML VIAL SQ SCH ×3 (00:11→14:40)
[2023-06-29] MEDS: KETOROLAC 15 MG/ML 1 ML VIAL IVP PRN ×2 (00:19→08:24)
[2023-06-29] MEDS: CEFEPIME 2 GM in SODIUM CHLORIDE 0.9% 100 ML IVPB SCH ×3 (00:25→16:36)
[2023-06-29] MEDS: VANCOMYCIN 1,250 MG in SODIUM CHLORIDE 0.9% 250 ML IVPB SCH ×3 (03:45→20:53)
[2023-06-29] MEDS: HYDROmorphone 0.5 MG/0.5 ML SYRINGE IVP PRN ×4 (05:35→20:51)
[2023-06-29 06:02] LABS: Basophils % (A) 0 %; Eosinophils # (A) 0.2 k/uL (0-0.7); Eosinophils % (A) 2 %; HCT 43.1 % (39.0-53.0); HGB 13.8 gm/dL (13.0-17.5); Lymphocytes # (A) 2.6 k/uL (1.0-4.8); Lymphocytes % (A) 25 %; MCH 28.2 pg (25.0-35.0); Mean Platelet Volume 8.2; Monocytes # (A) 0.9 k/uL (0-1.0); Monocytes % (A) 8 %; Neutrophils # (A) 6.5 k/uL (1.3-7.7); Neutrophils % (A) 63 %; Platelet Count 249 k/uL (150-450); WBC 10.4 k/uL (3.8-10.6)
[2023-06-29] MEDS: SODIUM CHLORIDE 0.9% 1,000 ML IV SCH ×2 (06:19→21:09)
[2023-06-29 06:24] LABS: African American GFR (CKD) >90 (>60 ml/min/1.73 sqM); Anion Gap 6 mmol/L; Blood Urea Nitrogen 13 mg/dL (9-20); C Reactive Protein 3.1 mg/dL (<1.0); Calcium 9.1 mg/dL (8.4-10.2); Carbon Dioxide 22 mmol/L (22-30); Chloride 108 mmol/L (98-107); Glucose 97 mg/dL (74-99); Non-African American GFR(CKD) >90 (>60 ml/min/1.73 sqM); Potassium 4.6 mmol/L (3.5-5.1); Sodium 136 mmol/L (137-145)
[2023-06-29] MEDS: METHADONE 10 MG TAB PO SCH (09:04)
[2023-06-29] MEDS ORDERED: VANCOMYCIN TROUGH DUE 1 EACH MISC MISCELLANE ONE ×2 (10:00→18:30)
--- NOTE | 2023-06-29 12:32 | P.PCN ---
Date of Procedure: 06/29/23 Preoperative Diagnosis: Left hand abscess, acute at the dorsum between the fourth and fifth MCP joints Postoperative Diagnosis: Same Anesthesia: none Pathology: other (Deep left hand wound cultures sent to microbiology 2) Condition: stable Description of Procedure: After the patient was seen and evaluated at bedside we discussed the left abscess of his hand. He had obvious fluid collection between his fourth and fifth MCP joints on the dorsum of his hand. This was due directly to IV drug use. He feels that the erythema and swelling in his hand has improved overnight with the IV antibiotics but there is definitely an area of fluctuance and fluid collection. He denies any fevers or chills. We discussed the treatment options with him at bedside. I discussed the possi bility of continuing IV antibiotics without intervention versus possibly of bedside irrigation debridement with Deandre and drainage, versus the possibility of formal open irrigation and debridement and washout in the operating room. The area had come to a head over the area of approximately 2-3 cm area with obvious fluctuance and thinning of the skin with erythema. We discussed doing Deandre and drainage bedside to relieve the pus and allow the antibiotics to continue to treat. I discussed the risk of occasions of his issue in the various treatment options with him. I answered his questions best my ability. We felt that doing a bedside I&D and good benefit and that he could tolerate this adequately. He gave me consent to proceed with a bedside irrigation and debridement. I sterilely prepped his left hand and the abscess area. I was able to Deandre the area with approximately 2 cm incision with a #sterile scalpel. There was immediate pus and flow of pus. There is purulent approximately 10 mL they came out of the area. I was able to a deep wound culture 2. Once the pus was fully expressed I then did copious irrigation with a liter of normal saline through the wound site itself. We had good cleaning of the area and no further purulence or pus noted at the space. There is some small bleeding. His hands and feet is worse more mobile and he felt good relief from the relief of pressure of the abscess. As able stress the area with bulky dry dressing and having the patient tolerated well. He will continue his IV antibiotics and close monitoring and we'll follow his wound closely. We discussed the possibility of repeat I&D and possibly a formal irrigation and debridement as necessary but we'll follow them closely and plan to continue with medications at this point.
--- NOTE | 2023-06-29 16:19 | P.PN ---
Subjective Progress Note Date: 06/29/23 Hospital course: Patient is a 38-year-old male with a past medical history of hepatitis C and IVDA and polysubstance abuse with heroin, cocaine, and fentanyl. He presented to the hospital on 06/27/23 from [facility] [place] secondary to left hand pain and swelling. Patient reports last injecting fentanyl between knuckles on 06/24/23. X-ray left hand was completed showing mild degenerative change and first MCP joint with marked dorsal soft tissue swelling but negative for reports of acute osseous abnormalities. Labs completed and reviewed showing leukocytosis with WBC count of 12.9. Lactate normal findings at 1.0. BMP unremarkable and liver profile also normal findings. Patient started on IV antibiotics of vancomycin and Zosyn and admitted under our services with consultation to infectious disease and orthopedic surgery. Physical exam: Vital signs reviewed and stable. General: Nontoxic, no distress and appears stated age. Derm: Skin warm and dry, normal coloration for ethnicity. Patient with moderate erythema and swelling to left posterior hand extending down into fingers and upwards into wrist. Patient unable to make a fist and with limited movement of fingers and thumb. Head: Atraumatic, normocephalic and symmetric. Eyes: EOMs intact, no lid lag, and anicteric sclera Mouth: no lip lesions, mucus membranes moist Cardiovascular: regular rate and rhythm with normal S1S2, no murmur, positive posterior tibial pulses bilaterally, and cap refill < 2 seconds. Lungs: Respirations even, regular, and unlabored on room air. Lungs CTA bilaterally, no rhonchi, no rales, no wheezing, and no accessory muscle usage. Abdominal: soft, nontender to palpation, no guarding, no appreciable organomegaly Ext: No gross muscle atrophy, no edema, no contractures. Patient unable to make a fist with left hand and with limited movement of fingers and thumb secondary to pain and swelling. Neuro: Speech clear, face symmetrical and CN II-XII grossly intact with no noted focal neuro deficits Psych: Alert and oriented to person, place, time, and situation. Appropriate and pleasant affect. Assessment and Plan of Care: Cellulitis of left hand with concerns of possible abscess secondary to IVDA Polysubstance abuse with heroin, cocaine, and fentanyl IVDA Hepatitis C -Continue IV antibiotics of vancomycin and Zosyn. -Monitor renal function and vancomycin trough closely to monitor for any signs of vancomycin-induced renal toxicity -Infectious disease consulted -Orthopedic surgery and discussed plan of care with orthopedic surgeon was completing an I&D at bedside. -Continue with symptomatic care and pain management with Toradol 15 mg IVP every 6 hours as needed for mild to moderate pain and Dilaudid 0.5 mg IVP every 3 hours for severe pain. Data reviewed: -Labs completed and reviewed showing WBC count improving to 10.4. BMP unremarkable. CRP was elevated at 3.1. -Vital signs reviewed. Blood pressure 118/77, heart rate 60, respiratory rate 16, temp 98.3F, SpO2 of 97% on room air. Imaging reviewed: -X-ray left hand was completed showing mild degenerative change and first MCP joint with marked dorsal soft tissue swelling but negative for reports of acute osseous abnormalities. CODE STATUS: full code DVT prophylaxis: Heparin Discussed with: patient, orthopedic surgeon and RN Anticipated discharge date: Clinical course to determine Anticipated discharge place: Home/Return to [facility] Patient was seen independently by Nurse Pracitioner. This document was prepared using [employer] dictation software. Please allow for errors in spool hauler, while rare they do occur. Josué Vega NP rendered care for this patient independently, reviewed the findings and plan as documented in the note above. I did not physically speak with or examine the patient on this date. Objective - Vital Signs Vital signs: Vital Signs Temp 98.3 F 06/29/23 07:23 Pulse 60 06/29/23 07:23 Resp 16 06/29/23 07:23 BP 118/77 06/29/23 07:23 Pulse Ox 97 06/29/23 07:23 FiO2 Intake & Output 06/28/23 06/29/23 06/29/23 18:59 06:59 18:59 Intake Total 1125 Balance 1125 Intake: Intake, IV Titration 1125 Amount Piperacillin-Tazobactam 3 200 .375 gm In Sodium Chloride 0.9% 100 ml @ 25 mls/hr IVPB Q8H [facility] Rx#: [id number] Sodium Chloride 0.9% 1, 675 000 ml @ 75 mls/hr IV . [id number] [facility] Rx#:[id number] Vancomycin 1,250 mg In 250 Sodium Chloride 0.9% 250 ml @ 125 mls/hr IVPB Q8H [facility] Rx#:[id number] Other: # Voids 2 - Labs CBC & Chem 7: 07/01/23 07:15 07/02/23 10:04 Labs: Abnormal Lab Results - Last 24 Hours (Table) 06/29/23 Range/Units 05:45 Sodium 136 L (137-145) mmol/L Chloride 108 H (98-107) mmol/L C-Reactive Protein 3.1 H (<1.0) mg/dL Microbiology - Last 24 Hours (Table) 06/27/23 16:18 Blood Culture - Preliminary Blood 06/27/23 16:10 Blood Culture - Preliminary Blood
--- NOTE | 2023-06-29 17:52 | P.PN ---
Subjective Progress Note Date: 06/29/23 Principal diagnosis: Left hand abscess IV drug use Patient is a 38-year-old male with a past medical history significant for IV drug use presenting to the hospital with increasing pain redness and swelling to the left hand patient did mention injecting to the area a day before the symptoms started patient has been diagnosed with the left hand abscess and the patient is status post surgical drainage completed on 06/29/2023 with evidence of fluid collection between fourth and fifth MCP joints. On today's evaluation that is06/29/2023, the patient continues to be afebrile, the patient is breathing comfortably and denies any shortness of breath no chest pain or cough, the patient denies having any nausea and vomiting no abdominal pain and no diarrhea, the patient left hand pain is currently controlled. Patient did have a white count of 10.4, creatinine 0.73 blood cultures currently pending Objective - Vital Signs Vital signs: Vital Signs Temp 97.8 F 06/29/23 13:48 Pulse 71 06/29/23 13:48 Resp 16 06/29/23 13:48 BP 108/67 06/29/23 13:48 Pulse Ox 92 L 06/29/23 13:48 FiO2 Intake & Output 06/28/23 06/29/23 06/29/23 18:59 06:59 18:59 Intake Total 1125 Balance 1125 Intake: Intake, IV Titration 1125 Amount Piperacillin-Tazobactam 3 200 .375 gm In Sodium Chloride 0.9% 100 ml @ 25 mls/hr IVPB Q8H [facility] Rx#: [id number] Sodium Chloride 0.9% 1, 675 000 ml @ 75 mls/hr IV . [id number] [facility] Rx#:[id number] Vancomycin 1,250 mg In 250 Sodium Chloride 0.9% 250 ml @ 125 mls/hr IVPB Q8H [facility] Rx#:[id number] Other: # Voids 2 - Exam GENERAL DESCRIPTION: Middle-aged male lying in bed in no distress RESPIRATORY SYSTEM: Unlabored breathing , decreased breath sounds at bases HEART: S1 S2 regular rate and rhythm , ABDOMEN: Soft , no tenderness EXTREMITIES: Left and is currently dressed no drainage on the dressing - Labs CBC & Chem 7: 06/29/23 05:45 06/29/23 05:45 Labs: Abnormal Lab Results - Last 24 Hours (Table) 06/29/23 Range/Units 05:45 Sodium 136 L (137-145) mmol/L Chloride 108 H (98-107) mmol/L C-Reactive Protein 3.1 H (<1.0) mg/dL Microbiology - Last 24 Hours (Table) 06/27/23 16:18 Blood Culture - Preliminary Blood 06/27/23 16:10 Blood Culture - Preliminary Blood Assessment and Plan (1) Abscess of left hand Current Visit: Yes Status: Acute Code(s): L02.512 - CUTANEOUS ABSCESS OF LEFT HAND SNOMED Code(s): 66211531535009109 Plan: 1patient was in the hospital with the left hand dorsomedial swelling redness pain secondary to the IV drug use concerning for development of underlying abscess likely from gram-positive skin shiv underlying gram-negative infection less likely but not entirely excluded. 2patient is status post surgical I&D and deep culture. 3patient to continue vancomycin and cefepime while waiting for the cultures to finalize Dictation was produced using [employer] dictation software. please excuse any grammatical, word or spelling errors. Time with Patient: Less than 30
[2023-06-30] MEDS: CEFEPIME 2 GM in SODIUM CHLORIDE 0.9% 100 ML IVPB SCH ×3 (00:12→15:05)
[2023-06-30] MEDS: KETOROLAC 15 MG/ML 1 ML VIAL IVP PRN ×3 (00:12→20:11)
[2023-06-30] MEDS: HEPARIN SODIUM,PORCINE 5,000 UNIT/ML 1 ML VIAL SQ SCH ×3 (00:21→14:57)
[2023-06-30] MEDS: HYDROmorphone 0.5 MG/0.5 ML SYRINGE IVP PRN ×3 (01:34→15:01)
[2023-06-30] MEDS: VANCOMYCIN 1,250 MG in SODIUM CHLORIDE 0.9% 250 ML IVPB SCH ×3 (03:11→20:12)
[2023-06-30 06:23] LABS: African American GFR (CKD) >90 (>60 ml/min/1.73 sqM); Non-African American GFR(CKD) >90 (>60 ml/min/1.73 sqM)
[2023-06-30] MEDS: METHADONE 10 MG TAB PO SCH (09:12)
--- NOTE | 2023-06-30 10:27 | P.PN ---
Progress Note - Text Progress Note Date: 06/30/23 Orthopedics: History of present illness: Patient is a pleasant 38-year-old male who is seen and examined at bedside for follow-up evaluation of his left hand. Yesterday he underwent bedside irrigation and debridement for left hand abscess acute at the dorsum between the fourth and fifth MCP joints with deep wound culture sent to microbiology. Since that time, his swelling and pain has improved and his left hand. He has better range of motion of his left hand. He does feel he is improving. He states there was some drainage at this wound site and removed his dressing. Nursing states they're planning to reapply a dressing over this wound. He continues to be seen and examined by infectious disease. They're waiting for culture results. He is currently continue with vancomycin and cefepime. Patient has had some difficulty with his IV. A new Acu Cath IV was placed via ultrasound without difficulty. Patient has no other complaints at the bedside. He denies fever or chills. He does not have elevated WBC. Physical Exam: Patient is awake, alert, and oriented 3 Vital signs stable Good chest excursion with deep inspiration and expiration Evidence of wound over the dorsum of the left hand between the fourth and fifth MCP joints with mild serosanguineous drainage currently No active purulent discharge from wound site at the left hand Evidence of generalized swelling over the left hand and fingers Patient is able to perform active range of motion independently at the left hand and fingers without significant difficulty No significant swelling at the left forearm Mild erythema on the dorsum of the left hand not extending to the forearm Assessment: Status post irrigation and debridement for left hand abscess acute at the dorsum between the fourth and fifth MCP joints with deep wound culture sent to microbiology Left hand pain and swelling, improved Left hand reduced range of motion, improved IV drug user Hepatitis C Polysubstance abuse with heroin, cocaine, and fentanyl Plan: 1. Following bedside irrigation and debridement for left hand abscess acute at the dorsum between the fourth and fifth MCP joints with deep wound culture, patient has had improvement of his symptoms overall. His left hand pain and swelling has improved. He has better range of motion of his left hand and fingers of the left hand. He does continue with a dressing over the wound site of the left hand. There is some drainage from this wound site but no obvious purulent discharge. The dressing will be reapplied. He may continue with dressing changes as needed over his left hand. Currently, we are not planning for further bedside irrigation and debridement or surgical intervention at his left hand. We plan to have him continue with conservative treatment with infectious disease. Currently, he is on vancomycin and cefepime per infectious disease. Infectious disease is currently waiting for culture results before modifying IV antibiotic medications. 2. Patient is admitted to medicine and will continue following for his multiple other medical diagnoses.
--- NOTE | 2023-06-30 12:14 | P.PN ---
Subjective Progress Note Date: 06/30/23 Principal diagnosis: Left hand abscess IV drug use Patient is a 38-year-old male with a past medical history significant for IV drug use presenting to the hospital with increasing pain redness and swelling to the left hand patient did mention injecting to the area a day before the symptoms started patient has been diagnosed with the left hand abscess and the patient is status post surgical drainage completed on 06/29/2023 with evidence of fluid collection between fourth and fifth MCP joints. On today's evaluation that is 06/30/2023, the patient remains to be afebrile, the patient is breathing comfortably , the patient denies having any chest pain or cough, the patient denies nausea and vomiting no abdominal pain and no diarrhea, the patient left hand pain has slightly decreased in intensity Patient did have a white count of 10.4 as of yesterday, creatinine 0.73 , blood cultures and her local cultures currently pending Objective - Vital Signs Vital signs: Vital Signs Temp 97.6 F 06/30/23 07:40 Pulse 60 06/30/23 07:45 Resp 17 06/30/23 07:45 BP 116/76 06/30/23 07:40 Pulse Ox 99 06/30/23 07:40 FiO2 Intake & Output 06/29/23 06/30/23 06/30/23 18:59 06:59 18:59 Other: # Voids 3 2 - Exam GENERAL DESCRIPTION: Middle-aged male lying in bed in no distress RESPIRATORY SYSTEM: Unlabored breathing , decreased breath sounds at bases HEART: S1 S2 regular rate and rhythm , ABDOMEN: Soft , no tenderness EXTREMITIES: Left and is currently dressed no drainage on the dressing - Labs CBC & Chem 7: 06/29/23 05:45 06/30/23 05:40 Labs: Microbiology - Last 24 Hours (Table) 06/27/23 16:18 Blood Culture - Preliminary Blood 06/27/23 16:10 Blood Culture - Preliminary Blood Assessment and Plan (1) Abscess of left hand Current Visit: Yes Status: Acute Code(s): L02.512 - CUTANEOUS ABSCESS OF LEFT HAND SNOMED Code(s): 19082637947275478 Plan: 1patient was in the hospital with the left hand dorsomedial swelling redness pain secondary to the IV drug use concerning for development of underlying abscess likely from gram-positive skin shiv underlying gram-negative infection less likely but not entirely excluded. 2patient is status post surgical I&D and deep culture which are currently pending. 3patient to continue vancomycin and cefepime while waiting for the cultures to finalize , to determine his discharge antibiotics may need IV Dictation was produced using [employer] dictation software. please excuse any grammatical, word or spelling errors. Time with Patient: Less than 30
[2023-06-30] MEDS: SODIUM CHLORIDE 0.9% 1,000 ML IV SCH ×2 (12:24→21:47)
--- NOTE | 2023-06-30 15:31 | P.PN ---
Subjective Progress Note Date: 06/30/23 Hospital course: Patient is a 38-year-old male with a past medical history of hepatitis C and IVDA and polysubstance abuse with heroin, cocaine, and fentanyl. He presented to the hospital on 06/27/23 from [facility] [place] secondary to left hand pain and swelling. Patient reports last injecting fentanyl between knuckles on 06/24/23. X-ray left hand was completed showing mild degenerative change and first MCP joint with marked dorsal soft tissue swelling but negative for reports of acute osseous abnormalities. Labs completed and reviewed showing leukocytosis with WBC count of 12.9. Lactate normal findings at 1.0. BMP unremarkable and liver profile also normal findings. Patient started on IV antibiotics of vancomycin and Zosyn and admitted under our services with consultation to infectious disease and orthopedic surgery. On 06/29/23 patient underwent incision and drainage at bedside by orthopedic surgery and deep wound cultures were obtained. Physical exam: Vital signs reviewed and stable. General: Nontoxic, no distress and appears stated age. Derm: Skin warm and dry, normal coloration for ethnicity. Dressing in place left hand. Head: Atraumatic, normocephalic and symmetric. Eyes: EOMs intact, no lid lag, and anicteric sclera Mouth: no lip lesions, mucus membranes moist Cardiovascular: regular rate and rhythm with normal S1S2, no murmur, positive posterior tibial pulses bilaterally, and cap refill < 2 seconds. Lungs: Respirations even, regular, and unlabored on room air. Lungs CTA bilaterally, no rhonchi, no rales, no wheezing, and no accessory muscle usage. Abdominal: soft, nontender to palpation, no guarding, no appreciable organomegaly Ext: No gross muscle atrophy, no edema, no contractures. Patient still unable to make a full fist but has significant improvement in movement of fingers and inability to wiggle and move hand and wrist. Neuro: Speech clear, face symmetrical and CN II-XII grossly intact with no noted focal neuro deficits Psych: Alert and oriented to person, place, time, and situation. Appropriate and pleasant affect. Assessment and Plan of Care: Cellulitis of left hand with concerns of possible abscess secondary to IVDA Polysubstance abuse with heroin, cocaine, and fentanyl IVDA Hepatitis C -Continue IV antibiotics of vancomycin and cefepime -Monitor renal function and vancomycin trough closely to monitor for any signs of vancomycin-induced renal toxicity -Infectious disease following and discussed plan of care. -Orthopedic surgery following an completed I&D at bedside on 06/29/23 and obtained deep wound cultures and sent to lab for analysis -Continue with symptomatic care and pain management with Toradol 15 mg IVP every 6 hours as needed for mild to moderate pain and Dilaudid 0.5 mg IVP every 3 hours for severe pain. -Blood cultures showing no growth to date. -Follow-up on wound cultures once available. Data reviewed: -Vital signs reviewed. Blood pressure 116/76, heart rate 61, respiratory rate 17, SpO2 of 99% on room air, temp 97.6F. -Vancomycin trough therapeutic at 19.3 Renal function stable with creatinine of 0.73 and GFR of greater than 90 showing no signs of vancomycin-induced renal toxicity. Imaging reviewed: -No new imaging available for review at this time CODE STATUS: full code DVT prophylaxis: Heparin Discussed with: patient, orthopedic surgeon and RN Anticipated discharge date: Clinical course to determine Anticipated discharge place: Home/Return to [facility] Patient was seen independently by Nurse Pracitioner. This document was prepared using [employer] dictation software. Please allow for errors in station engineer chief, while rare they do occur. Josué Vega NP rendered care for this patient independently, reviewed the findi ngs and plan as documented in the note above. I did not physically speak with or examine the patient on this date. Objective - Vital Signs Vital signs: Vital Signs Temp 97.6 F 06/30/23 07:40 Pulse 61 06/30/23 07:40 Resp 17 06/30/23 07:40 BP 116/76 06/30/23 07:40 Pulse Ox 99 06/30/23 07:40 FiO2 Intake & Output 06/29/23 06/30/23 06/30/23 18:59 06:59 18:59 Other: # Voids 3 2 - Labs CBC & Chem 7: 07/01/23 07:15 07/02/23 10:04 Labs: Microbiology - Last 24 Hours (Table) 06/27/23 16:18 Blood Culture - Preliminary Blood 06/27/23 16:10 Blood Culture - Preliminary Blood
[2023-07-01] MEDS: CEFEPIME 2 GM in SODIUM CHLORIDE 0.9% 100 ML IVPB SCH ×4 (00:17→23:58)
[2023-07-01] MEDS: HEPARIN SODIUM,PORCINE 5,000 UNIT/ML 1 ML VIAL SQ SCH ×3 (00:18→17:13)
[2023-07-01] MEDS: VANCOMYCIN 1,250 MG in SODIUM CHLORIDE 0.9% 250 ML IVPB SCH ×3 (02:16→19:56)
[2023-07-01 07:33] LABS: Basophils % (A) 1 %; Eosinophils # (A) 0.3 k/uL (0-0.7); Eosinophils % (A) 5 %; HCT 41.9 % (39.0-53.0); HGB 12.9 gm/dL (13.0-17.5); Hypochromasia Slight; Lymphocytes # (A) 2.3 k/uL (1.0-4.8); Lymphocytes % (A) 35 %; MCH 27.9 pg (25.0-35.0); MCHC 30.9 g/dL (31.0-37.0); MCV 90.2 fL (80.0-100.0); Mean Platelet Volume 7.5; Monocytes # (A) 0.5 k/uL (0-1.0); Monocytes % (A) 7 %; Neutrophils # (A) 3.2 k/uL (1.3-7.7); Neutrophils % (A) 49 %; Platelet Count 264 k/uL (150-450); RBC 4.64 m/uL (4.30-5.90); RDW 13.8 % (11.5-15.5); WBC 6.5 k/uL (3.8-10.6)
[2023-07-01 08:09] LABS: African American GFR (CKD) >90 (>60 ml/min/1.73 sqM); Anion Gap 8 mmol/L; Blood Urea Nitrogen 12 mg/dL (9-20); Calcium 9.3 mg/dL (8.4-10.2); Carbon Dioxide 22 mmol/L (22-30); Chloride 110 mmol/L (98-107); Glucose 99 mg/dL (74-99); Non-African American GFR(CKD) >90 (>60 ml/min/1.73 sqM); Sodium 140 mmol/L (137-145)
[2023-07-01] MEDS: METHADONE 10 MG TAB PO SCH (08:28)
[2023-07-01] MEDS: SODIUM CHLORIDE 0.9% 1,000 ML IV SCH ×2 (08:56→23:06)
--- NOTE | 2023-07-01 09:14 | P.PN ---
Progress Note - Text Progress Note Date: 07/01/23 Orthopedics: History of present illness: Patient is a pleasant 38-year-old male who is seen and examined at bedside for follow-up evaluation of his left hand. On 06/29/2023 he underwent bedside irrigation and debridement for left hand abscess acute at the dorsum between the fourth and fifth MCP joints with deep wound culture sent to microbiology. Since that time, his swelling and pain has improved and his left hand. He has better range of motion of his left hand. He does feel he is improving and has continued to have good improvement even as compared to yesterday. He states there was some drainage at this wound site but the drainage has i mproved. The swelling and erythema is improving. He has better range of motion of fingers of the left hand. He continues to be seen and examined by infectious disease. They're waiting for culture results. He is currently continue with vancomycin and cefepime. Patient has had some difficulty with his IV. A new Acu Cath IV was placed via ultrasound without difficulty yesterday. Patient has no other complaints at the bedside. He denies fever or chills. He does not have elevated WBC. Patient is hoping to be discharged on oral antibiotic medication so that he may return to [place]. Physical Exam: Patient is awake, alert, and oriented 3 Vital signs stable Good chest excursion with deep inspiration and expiration Evidence of wound over the dorsum of the left hand between the fourth and fifth MCP joints without active drainage currently No active purulent discharge from wound site at the left hand Evidence of generalized swelling over the left hand and fingers with improvement as compared to yesterday Patient is able to perform active range of motion independently at the left hand and fingers without significant difficulty with improvement as compared to yesterday No significant swelling at the left forearm Mild erythema on the dorsum of the left hand not extending to the forearm with improvement as compared to yesterday Assessment: Status post irrigation and debridement for left hand abscess acute at the dorsum between the fourth and fifth MCP joints with deep wound culture sent to microbiology Left hand pain and swelling, improved Left hand reduced range of motion, improved IV drug user Hepatitis C Polysubstance abuse with heroin, cocaine, and fentanyl Plan: 1. Following bedside irrigation and debridement for left hand abscess acute at the dorsum between the fourth and fifth MCP joints with deep wound culture, patient has had improvement of his symptoms overall and has continued to improve as compared to yesterday. His left hand pain and swelling has improved. He has better range of motion of his left hand and fingers of the left hand compared to yesterday. Dressing is removed and reapplied over the wound site at left hand. Currently no active drainage from the wound site. We discussed dressing changes may continue as needed. Currently, we are not planning for further bedside irrigation and debridement or surgical intervention at his left hand. We plan to have him continue with conservative treatment with infectious disease. From an orthopedic standpoint, patient is clear for discharge. Patient may follow-up with Jamar Begum PA-C or Dr. Julio Mendoza at [facility] in 3-4 days following discharge. Currently, he is on vancomycin and cefepime per infectious disease. Infectious disease is currently waiting for culture results before modifying IV antibiotic medications. 2. Patient is admitted to medicine and will continue following for his multiple other medical diagnoses.
--- NOTE | 2023-07-01 14:54 | P.PN ---
Subjective Progress Note Date: 07/01/23 Hospital course: Patient is a 38-year-old male with a past medical history of hepatitis C and IVDA and polysubstance abuse with heroin, cocaine, and fentanyl. He presented to the hospital on 06/27/23 from [facility] secondary to left hand pain and swelling. Patient reports last injecting fentanyl between knuckles on 06/24/23. X-ray left hand was completed showing mild degenerative change and first MCP joint with marked dorsal soft tissue swelling but negative for reports of acute osseous abnormalities. Labs completed and reviewed showing leukocytosis with WBC count of 12.9. Lactate normal findings at 1.0. BMP unremarkable and liver profile also normal findings. Patient started on IV antibiotics of vancomycin and Zosyn and admitted under our services with consultation to infectious disease and orthopedic surgery. On 06/29/23 patient underwent incision and drainage at bedside by orthopedic surgery and deep wound cultures were obtained. Physical exam: Patient seen and evaluated this morning. He appears to be doing well. He rep orts continued improvement in movement and pain of left hand. Patient ambulating in the halls and denies having any needs at this time. Vital signs reviewed and stable. General: Nontoxic, no distress and appears stated age. Derm: Skin warm and dry, normal coloration for ethnicity. Dressing in place left hand. Head: Atraumatic, normocephalic and symmetric. Eyes: EOMs intact, no lid lag, and anicteric sclera Mouth: no lip lesions, mucus membranes moist Cardiovascular: regular rate and rhythm with normal S1S2, no murmur, positive posterior tibial pulses bilaterally, and cap refill < 2 seconds. Lungs: Respirations even, regular, and unlabored on room air. Lungs CTA bilaterally, no rhonchi, no rales, no wheezing, and no accessory muscle usage. Abdominal: soft, nontender to palpation, no guarding, no appreciable organomegaly Ext: No gross muscle atrophy, no edema, no contractures. Patient still unable to make a full fist but has significant improvement in movement of fingers and i nability to wiggle and move hand and wrist. Neuro: Speech clear, face symmetrical and CN II-XII grossly intact with no noted focal neuro deficits Psych: Alert and oriented to person, place, time, and situation. Appropriate and pleasant affect. Assessment and Plan of Care: Cellulitis of left hand with concerns of possible abscess secondary to IVDA Polysubstance abuse with heroin, cocaine, and fentanyl IVDA Hepatitis C -Continue IV antibiotics of vancomycin and cefepime -Monitor renal function and vancomycin trough closely to monitor for any signs of vancomycin-induced renal toxicity -Infectious disease following and discussed plan of care. -Orthopedic surgery following an completed I&D at bedside on 06/29/23 and obtained deep wound cultures and sent to lab for analysis -Continue with symptomatic care and pain management with Toradol 15 mg IVP every 6 hours as needed for mild to moderate pain and Dilaudid 0.5 mg IVP every 3 hours for severe pain. -Blood cultures showing no growth to date. -Follow-up on wound cultures once available. Data reviewed: -Vital signs reviewed. Blood pressure 102/61, heart rate 50, respiratory rate 18, temp 97.7F, SpO2 of 99% on room air. -Labs completed and reviewed. CBC unremarkable except exception of minimal normocytic anemia with hemoglobin of 12.9. BMP unremarkable. Renal function stable with BUN of 12, creatinine 0.73, and GFR greater than 90 showing no signs of vancomycin associated renal toxicity. Imaging reviewed: -No new imaging available for review at this time CODE STATUS: full code DVT prophylaxis: Heparin Discussed with: patient, orthopedic PA and RN Anticipated discharge date: Clinical course to determine Anticipated discharge place: Home/Return to [facility] Patient was seen independently by Nurse Pracitioner. This document was prepared using [employer] dictation software. Please allow for errors in scrap handler, while rare they do occur. Josué Vega NP rendered care for this patient independently, reviewed the findings and plan as documented in the note above. I did not physically speak with or examine the patient on this date. Objective - Vital Signs Vital signs: Vital Signs Temp 98.1 F 07/01/23 01:17 Pulse 66 07/01/23 01:17 Resp 17 07/01/23 01:17 BP 83/50 07/01/23 01:17 Pulse Ox 95 07/01/23 01:17 FiO2 Intake & Output 06/30/23 07/01/23 07/01/23 18:59 06:59 18:59 Intake Total 1080 Balance 1080 Intake: Oral 1080 Other: # Voids 4 2 # Bowel Movements 0 - Labs CBC & Chem 7: 07/01/23 07:15 07/02/23 10:04 Labs: Abnormal Lab Results - Last 24 Hours (Table) 07/01/23 07/01/23 Range/Units 07:15 07:15 Hgb 12.9 L (13.0-17.5) gm/dL MCHC 30.9 L (31.0-37.0) g/dL Chloride 110 H (98-107) mmol/L Microbiology - Last 24 Hours (Table) 06/27/23 16:18 Blood Culture - Preliminary Blood 06/27/23 16:10 Blood Culture - Preliminary Blood 06/29/23 11:30 Gram Stain - Preliminary Hand - Left
[2023-07-01] MEDS: HYDROmorphone 0.5 MG/0.5 ML SYRINGE IVP PRN ×2 (15:39→23:58)
--- NOTE | 2023-07-01 17:06 | P.PN ---
Subjective Progress Note Date: 07/01/23 Principal diagnosis: Left hand abscess IV drug use Patient is a 38-year-old male with a past medical history significant for IV drug use presenting to the hospital with increasing pain redness and swelling to the left hand patient did mention injecting to the area a day before the symptoms started patient has been diagnosed with the left hand abscess and the patient is status post surgical drainage completed on 06/29/2023 with evidence of fluid collection between fourth and fifth MCP joints. On today's evaluation that is 07/01/2023, the patient denies any fever or any chills, the patient is breathing comfortably , the patient denies chest pain or cough, the patient denies nausea and vomiting no abdominal pain and no diarrhea has been reported, the patient left hand pain has decreased in intensity Patient did have a white count of 6.5, creatinine is 0.73 , blood cultures and local cultures currently pending Objective - Vital Signs Vital signs: Vital Signs Temp 97.7 F 07/01/23 07:37 Pulse 50 L 07/01/23 07:37 Resp 18 07/01/23 07:37 BP 102/61 07/01/23 07:37 Pulse Ox 99 07/01/23 07:37 FiO2 Intake & Output 06/30/23 07/01/23 07/01/23 18:59 06:59 18:59 Intake Total 1080 Balance 1080 Intake: Oral 1080 Other: # Voids 4 2 # Bowel Movements 0 - Exam GENERAL DESCRIPTION: Middle-aged male lying in bed in no distress RESPIRATORY SYSTEM: Unlabored breathing , decreased breath sounds at bases HEART: S1 S2 regular rate and rhythm , ABDOMEN: Soft , no tenderness EXTREMITIES: Left hand dorsum wound with minimal surrounding maceration no drainage - Labs CBC & Chem 7: 07/01/23 07:15 07/01/23 07:15 Labs: Abnormal Lab Results - Last 24 Hours (Table) 07/01/23 07/01/23 Range/Units 07:15 07:15 Hgb 12.9 L (13.0-17.5) gm/dL MCHC 30.9 L (31.0-37.0) g/dL Chloride 110 H (98-107) mmol/L Microbiology - Last 24 Hours (Table) 06/27/23 16:18 Blood Culture - Preliminary Blood 06/27/23 16:10 Blood Culture - Preliminary Blood 06/29/23 11:30 Gram Stain - Preliminary Hand - Left Assessment and Plan (1) Abscess of left hand Current Visit: Yes Status: Acute Code(s): L02.512 - CUTANEOUS ABSCESS OF LEFT HAND SNOMED Code(s): 34880795464906994 Plan: 1patient was in the hospital with the left hand dorsomedial swelling redness pain secondary to the IV drug use concerning for development of underlying abscess likely from gram-positive skin shiv underlying gram-negative infection less likely but not entirely excluded. 2patient is status post surgical I&D and deep culture which are currently pending. 3patient to continue vancomycin and cefepime while waiting for the cultures to finalize ,, patient benefit from a IV antibiotic on discharge which the patient's currently refusing Dictation was produced using [employer] dictation software. please excuse any grammatical, word or spelling errors. Time with Patient: Less than 30
[2023-07-01] MEDS ORDERED: VANCOMYCIN TROUGH DUE 1 EACH MISC MISCELLANE ONE (18:00)
[2023-07-01] MEDS: KETOROLAC 15 MG/ML 1 ML VIAL IVP PRN (20:22)
[2023-07-02] MEDS: HEPARIN SODIUM,PORCINE 5,000 UNIT/ML 1 ML VIAL SQ SCH ×3 (00:02→16:21)
[2023-07-02] MEDS: VANCOMYCIN 1,250 MG in SODIUM CHLORIDE 0.9% 250 ML IVPB SCH ×2 (03:32→10:52)
[2023-07-02] MEDS: METHADONE 10 MG TAB PO SCH (07:57)
[2023-07-02] MEDS: CEFEPIME 2 GM in SODIUM CHLORIDE 0.9% 100 ML IVPB SCH ×2 (08:15→16:08)
[2023-07-02] MEDS: HYDROmorphone 0.5 MG/0.5 ML SYRINGE IVP PRN ×2 (08:26→17:44)
[2023-07-02 10:10] VITALS: BMI 24.7
[2023-07-02 10:37] LABS: African American GFR (CKD) >90 (>60 ml/min/1.73 sqM); Non-African American GFR(CKD) >90 (>60 ml/min/1.73 sqM)
[2023-07-02 13:19] VITALS: RESP 18
[2023-07-02] MEDS: SODIUM CHLORIDE 0.9% 1,000 ML IV SCH (13:27)
--- NOTE | 2023-07-02 14:18 | P.PN ---
Subjective Progress Note Date: 07/02/23 Hospital course: Patient is a 38-year-old male with a past medical history of hepatitis C and IVDA and polysubstance abuse with heroin, cocaine, and fentanyl. He presented to the hospital on 06/27/23 from [facility] secondary to left hand pain and swelling. Patient reports last injecting fentanyl between knuckles on 06/24/23. X-ray left hand was completed showing mild degenerative change and first MCP joint with marked dorsal soft tissue swelling but negative for reports of acute osseous abnormalities. Labs completed and reviewed showing leukocytosis with WBC count of 12.9. Lactate normal findings at 1.0. BMP unremarkable and liver profile also normal findings. Patient started on IV antibiotics of vancomycin and Zosyn and admitted under our services with consultation to infectious disease and orthopedic surgery. On 06/29/23 patient underwent incision and drainage at bedside by orthopedic surgery and deep wound cultures were obtained. Physical exam: Patient seen and evaluated this morning. He continues to be doing well. He r eports continued improvement in movement and pain of left hand. Patient ambulating in the halls and denies having any needs at this time.. Awaiting wound culture results and plan is for discharge back to [facility]. Vital signs reviewed and stable. General: Nontoxic, no distress and appears stated age. Derm: Skin warm and dry, normal coloration for ethnicity. Dressing in place left hand. Head: Atraumatic, normocephalic and symmetric. Eyes: EOMs intact, no lid lag, and anicteric sclera Mouth: no lip lesions, mucus membranes moist Cardiovascular: regular rate and rhythm with normal S1S2, no murmur, positive posterior tibial pulses bilaterally, and cap refill < 2 seconds. Lungs: Respirations even, regular, and unlabored on room air. Lungs CTA bilaterally, no rhonchi, no rales, no wheezing, and no accessory muscle usage. Abdominal: soft, nontender to palpation, no guarding, no appreciable organomegaly Ext: No gross muscle atrophy, no edema, no contractures. Patient still unable to make a full fist but has significant improvement in movement of fingers and inability to wiggle and move hand and wrist. Neuro: Speech clear, face symmetrical and CN II-XII grossly intact with no noted focal neuro deficits Psych: Alert and oriented to person, place, time, and situation. Appropriate and pleasant affect. Assessment and Plan of Care: Cellulitis of left hand with concerns of possible abscess secondary to IVDA Polysubstance abuse with heroin, cocaine, and fentanyl IVDA Hepatitis C -Continue IV antibiotics of vancomycin and cefepime -Monitor renal function and vancomycin trough closely to monitor for any signs of vancomycin-induced renal toxicity -Infectious disease following and discussed plan of care. -Orthopedic surgery following an completed I&D at bedside on 06/29/23 and obtained deep wound cultures and sent to lab for analysis -Continue with symptomatic care and pain management with Toradol 15 mg IVP every 6 hours as needed for mild to moderate pain and Dilaudid 0.5 mg IVP every 3 hours for severe pain. -Blood cultures showing no growth to date. -Follow-up on wound cultures once available. Data reviewed: -Vital signs reviewed. Blood pressure blood pressure 117/78, heart rate 51, respiratory rate 17, temp 98.2F, SpO2 100% on room air. Imaging reviewed: -No new imaging available for review at this time Discussed with infectious disease physician, plan is for discharge back to [facility] once wound cultures can be obtained. Call placed to microbiology lab regarding culture results. CODE STATUS: full code DVT prophylaxis: Heparin Discussed with: patient, infectious disease physician and RN Anticipated discharge date: Patient to be discharged within the next 24 hours pending wound culture results. Anticipated discharge place: Home/Return to [facility] Patient was seen independently by Nurse Pracitioner. This document was prepared using [employer] dictation software. Please allow for errors in boat painter, while rare they do occur. Josué Vega NP rendered care for this patient independently, reviewed the findings and plan as documented in the note above. I did not physically speak with or examine the patient on this date. Objective - Vital Signs Vital signs: Vital Signs Temp 97.7 F 07/02/23 02:24 Pulse 50 L 07/02/23 02:24 Resp 17 07/02/23 02:24 BP 121/66 07/02/23 02:24 Pulse Ox 98 07/02/23 02:24 FiO2 Intake & Output 07/01/23 07/02/23 07/02/23 18:59 06:59 18:59 Intake Total 250 Balance 250 Intake: Oral 250 Other: Voiding Method Bedside Commode Bedside Commode # Voids 2 2 - Labs CBC & Chem 7: 07/01/23 07:15 07/02/23 10:04 Labs: Microbiology - Last 24 Hours (Table) 06/29/23 11:30 Anaerobic Culture - Preliminary Hand - Left 06/27/23 16:18 Blood Culture - Preliminary Blood 06/27/23 16:10 Blood Culture - Preliminary Blood
[2023-07-02] MEDS: KETOROLAC 15 MG/ML 1 ML VIAL IVP PRN (16:07)
[2023-07-02] MEDS: VANCOMYCIN 1,000 MG in SODIUM CHLORIDE 0.9% 250 ML IVPB SCH (19:58)
[2023-07-03] MEDS: CEFEPIME 2 GM in SODIUM CHLORIDE 0.9% 100 ML IVPB SCH (00:26)
[2023-07-03] MEDS: HEPARIN SODIUM,PORCINE 5,000 UNIT/ML 1 ML VIAL SQ SCH ×2 (00:26→07:59)
[2023-07-03] MEDS: VANCOMYCIN 1,000 MG in SODIUM CHLORIDE 0.9% 250 ML IVPB SCH (04:11)
[2023-07-03] MEDS: SODIUM CHLORIDE 0.9% 1,000 ML IV SCH (04:14)
--- NOTE | 2023-07-03 07:08 | P.PN ---
Subjective Progress Note Date: 07/02/23 Principal diagnosis: Left hand abscess IV drug use Patient is a 38-year-old male with a past medical history significant for IV drug use presenting to the hospital with increasing pain redness and swelling to the left hand patient did mention injecting to the area a day before the symptoms started patient has been diagnosed with the left hand abscess and the patient is status post surgical drainage completed on 06/29/2023 with evidence of fluid collection between fourth and fifth MCP joints. On today's evaluation that is 07/02/2023, the patient denies having any fever or any chills, the patient is breathing comfortably, the patient denies having any chest pain shortness of breath or cough no nausea vomiting no abdominal pain or diarrhea, the patient left hand pain swelling redness has decreased and no drainage. Patient did have white count of 6.5 as of yesterday creatinine 0.72 Vanco trough is 20.4, left hand culture remains to be pending. Objective - Vital Signs Vital signs: Vital Signs Temp 98.2 F 07/02/23 08:32 Pulse 51 L 07/02/23 08:32 Resp 17 07/02/23 08:32 BP 117/78 07/02/23 08:32 Pulse Ox 100 07/02/23 08:32 FiO2 Intake & Output 07/01/23 07/02/23 07/02/23 18:59 06:59 18:59 Intake Total 250 Balance 250 Weight 71.668 kg Intake: Oral 250 Other: Voiding Method Bedside Commode Bedside Commode # Voids 2 2 - Exam GENERAL DESCRIPTION: Middle-aged male lying in bed in no distress RESPIRATORY SYSTEM: Unlabored breathing , decreased breath sounds at bases HEART: S1 S2 regular rate and rhythm , ABDOMEN: Soft , no tenderness EXTREMITIES: Left hand dorsum wound swelling and redness has decreased and no drainage - Labs CBC & Chem 7: 07/01/23 07:15 07/02/23 10:04 Labs: Microbiology - Last 24 Hours (Table) 06/29/23 11:30 Anaerobic Culture - Preliminary Hand - Left Assessment and Plan (1) Abscess of left hand Current Visit: Yes Status: Acute Code(s): L02.512 - CUTANEOUS ABSCESS OF LEFT HAND SNOMED Code(s): 17899642913173978 Plan: 1patient was in the hospital with the left hand dorsomedial swelling redness pain secondary to the IV drug use concerning for development of underlying abscess likely from gram-positive skin shiv underlying gram-negative infection less likely but not entirely excluded. 2patient is status post surgical I&D and deep culture which are currently pending. 3patient has shown clinical improvement and will continue with the vancomycin for pain while waiting for the culture to finalize patient has been advised diabetes mellitus with the patient has been refusing as he wants to go to the [facility] for rehabilitation discharge antibiotics will be admitted On doxycycline on the basis of final culture Dictation was produced using [employer] dictation software. please excuse any grammatical, word or spelling errors.
[2023-07-03] MEDS: METHADONE 10 MG TAB PO SCH (08:10)
--- NOTE | 2023-07-03 11:12 | P.DS ---
Providers Date of admission: 06/27/23 19:28 Expected date of discharge: 07/03/23 Attending physician: Roberto Camacho MD Consults: 06/27/23 19:29 Consult Physician Urgent Consulting Provider: Femi Rogers Consult Reason/Comments: hand abscess Do you want consulting provider notified?: Yes 06/28/23 16:19 Consult Physician Routine Consulting Provider: Phu Mendoza Consult Reason/Comments: left hand abscess, cellulitis, evalutate for I&D Do you want consulting provider notified?: Yes Primary care physician: Stated None Hospital Course: Discharge Diagnosis: Cellulitis of left hand with abscess secondary to IVDA Polysubstance abuse with heroin, cocaine, and fentanyl IVDA Hepatitis C Hospital Course: 38-year-old male with a past medical history of hepatitis C and IVDA and polysubstance abuse with heroin, cocaine, and fentanyl. He presented to the hospital on 06/27/23 from [facility] [place] secondary to left hand pain and swelling. Patient reports last injecting fentanyl between knuckles on 06/24/23. X-ray left hand was completed showing mild degenerative change and first MCP joint with marked dorsal soft tissue swelling but negative for reports of acute osseous abnormalities. Labs completed and reviewed showing leukocytosis with WBC count of 12.9. Lactate normal findings at 1.0. BMP unremarkable and liver profile also normal findings. Patient started on IV antibiotics of vancomycin and Zosyn and admitted under our services with consultation to infectious disease and orthopedic surgery. On 06/29/23 patient underwent incision and drainage at bedside by orthopedic surgery and deep wound cultures were obtained. Wound cultures positive for alpha hemolytic streptococcus. Patient being discharged on oral Keflex. Patient seen and examined at bedside. Vital signs reviewed and stable. General: nontoxic, no distress, appears at stated age Derm: warm, dry, left hand dressing clean, dry, intact Head: atraumatic, normocephalic, symmetric Eyes: EOMI, no lid lag, anicteric sclera Mouth: no lip lesion, mucus membranes moist Cardiovascular: S1S2 reg, no murmur Lungs: CTA bilateral, no rhonchi, no rales , no accessory muscle use Abdominal: soft, nontender to palpation, no guarding, no appreciable organomegaly Ext: no gross muscle atrophy, no edema, no contractures Neuro: CN II-XI grossly intact, no focal neuro deficits Psych: Alert, oriented, appropriate affect A total of 32 minutes of time were spent preparing this complex discharge summary. Patient was discharged on 07/03/23 at 11:09. Patient Condition at Discharge: Stable Plan - Discharge Summary Discharge Rx Participant: No New Discharge Prescriptions: New Cephalexin [Keflex] 500 mg PO Q6HR 14 Days #56 cap Continue Methadone HCl [Methadone Intensol] 79 mg PO DAILY Discharge Medication List Methadone HCl [Methadone Intensol] 79 mg PO DAILY 06/27/23 [History] Cephalexin [Keflex] 500 mg PO Q6HR 14 Days #56 cap 07/03/23 [Rx] Follow up Appointment(s)/Referral(s): Jamar Begum, PAC [PHYSICIAN SPEECH LANGUAGE PATHOLOGIST TRAVEL] - 3 Days (Patient may follow-up with Jamar Begum PA-C or Dr. Julio Mendoza at [facility] in 3 days following discharge. ) None,Stated [Primary Care Provider] - 1-2 days Patient Instructions/Handouts: Abscess (GEN) Activity/Diet/Wound Care/Special Instructions: 1. Continue dressing changes over the dorsum of left hand as needed 2. Keep wound site at the dorsal left hand clean and dry Discharge Disposition: HOME SELF-CARE
--- NOTE | 2023-07-03 15:31 | P.PN ---
Subjective Progress Note Date: 07/03/23 Principal diagnosis: Left hand abscess IV drug use Patient is a 38-year-old male with a past medical history significant for IV drug use presenting to the hospital with increasing pain redness and swelling to the left hand patient did mention injecting to the area a day before the symptoms started patient has been diagnosed with the left hand abscess and the patient is status post surgical drainage completed on 06/29/2023 with evidence of fluid collection between fourth and fifth MCP joints. On today's evaluation that is 07/03/2023, the patient is afebrile, the patient is breathing comfortably , the patient denies chest pain and no significant cough, the patient denies nausea and vomiting no abdominal pain and no diarrhea,a, the patient left hand pain swelling redness has decreased and patient is insisting on going to the [facility] Patient did have white count of 6.5 as of 07/01/2023 creatinine 0.72 Vanco trough is 20.4, left hand culture with alphahemolytic streptococcus. Objective - Vital Signs Vital signs: Vital Signs Temp 98.1 F 07/03/23 07:43 Pulse 60 07/03/23 08:10 Resp 18 07/03/23 08:10 BP 126/78 07/03/23 07:43 Pulse Ox 100 07/03/23 07:43 FiO2 Intake & Output 07/02/23 07/03/23 07/03/23 18:59 06:59 18:59 Weight 71.668 kg Other: Voiding Method Bedside Commode Toilet # Voids 2 - Exam GENERAL DESCRIPTION: Middle-aged male lying in bed in no distress RESPIRATORY SYSTEM: Unlabored breathing , decreased breath sounds at bases HEART: S1 S2 regular rate and rhythm , ABDOMEN: Soft , no tenderness EXTREMITIES: Left hand dorsum wound swelling and redness has decreased and no drainage - Labs CBC & Chem 7: 07/01/23 07:15 07/02/23 10:04 Labs: Microbiology - Last 24 Hours (Table) 06/27/23 16:18 Blood Culture - Final Blood 06/27/23 16:10 Blood Culture - Final Blood 06/29/23 11:30 Gram Stain - Preliminary Hand - Left Wound Culture - Preliminary Alpha Hemolytic Streptococcus Assessment and Plan (1) Abscess of left hand Status: Acute Code(s): L02.512 - CUTANEOUS ABSCESS OF LEFT HAND SNOMED Code(s): [id number] Plan: 1patient was in the hospital with the left hand dorsomedial swelling redness pain secondary to the IV drug use concerning for development of underlying abscess likely from gram-positive skin shiv underlying gram-negative infection less likely but not entirely excluded. 2patient is status post surgical I&D and deep culture which are currently growing alphahemolytic streptococcus 3patient has shown clinical improvement and local cultures currently growing alpha hemolytic streptococcus, patient has refused IV antibiotics as he wants to go for drug rehab we will given a prescription for Keflex 500 mg by mouth every 6 hours for 2 weeks and close outpatient follow-up Dictation was produced using [employer] dictation software. please excuse any grammatical, word or spelling errors. Time with Patient: Less than 30
[2023-07-03 15:48] VITALS: BP 126/78; PULSE 60; TEMP 98.1
== END 2023-07-03 13:00 | disposition other institution (70) | DRG 383 ==
LOC: EC 15:05 → 4SSUR 19:28
PROVIDERS: ADMIT Student in an Organized Health Care Education/Training Program; ATTEND Student in an Organized Health Care Education/Training Program
PROC: 05HB33Z Insertion of Infusion Device into Right Basilic Vein, Percutaneous Approach (ICD-10-PCS; principal; 2023-06-30 07:30)
PROC: 05HC33Z Insertion of Infusion Device into Left Basilic Vein, Percutaneous Approach (ICD-10-PCS; 2023-07-02 09:30)
DX: L02.512 Cutaneous abscess of left hand (principal); L03.114 Cellulitis of left upper limb; B19.20 Unspecified viral hepatitis C without hepatic coma; F14.10 Cocaine abuse, uncomplicated; F11.20 Opioid dependence, uncomplicated; F17.210 Nicotine dependence, cigarettes, uncomplicated; Z71.6 Tobacco abuse counseling; M54.9 Dorsalgia, unspecified; Z79.899 Other long term (current) drug therapy; W22.01XA Walked into wall, initial encounter
CPT/HCPCS: 36410; 36415; 76937; 80048; 80053; 80202; 82565; 83605; 83735; 85025; 86140; 87040; 87070; 87075; 87102; 87205; 96365; 96366; 96368; 96375; 99285